=== PATIENT | male | born 1975 | race African-American/Black ===

== ENCOUNTER 2017-06-06 11:55 | Inpatient (IN) | payer OTHER ==
[2017-06-06 12:08] VITALS: BMI 34.3
--- NOTE | 2017-06-06 12:13 | PDOC ---
Attending Attestation - Resident Resident Name: Rosi Rosales - ED Attending Attestation I have performed the following: I have examined & evaluated the patient, The case was reviewed & discussed with the resident, I agree w/resident's findings & plan, Exceptions are as noted - HPI HPI: 06/06/17 12:12 Hand Infection - Renal Transplant roughly 10 years ago - Physicial Exam PE: 06/06/17 12:13 Obvious Infection - Medical Decision Making 06/06/17 12:[address] Grove's assessment and plan Discharge Disposition - Diagnosis Immunocompromised state, Kidney transplant recipient, Cellulitis of right upper extremity Cellulitis of lower extremity Qualifiers: Laterality: left Qualified Code(s): L03.116 - Cellulitis of left lower limb - Discharge Dispostion Condition at time of disposition: Improved Last Admission D/C Date: 04/18/04 Admit: Yes
[2017-06-06] MEDS ORDERED: PIPERACILLIN/TAZOB 4.5 GM/100 ML PRE-DOCKED IVPB ONE (12:59)
[2017-06-06] MEDS ORDERED: VANCOMYCIN 2,000 MG in DEXTROSE 5%-WATER - 500 ML IVPB ONE (13:00)
[2017-06-06 13:23] LABS: BASOPHIL 0.6 % (0-2.0); EOSINOPHIL 1.2 % (0-4.5); MCH 28.5 pg (25.7-33.7); MCHC 32.3 g/dl (32.0-35.9); MEAN CELL VOLUME 88.3 fl (80-96); MEAN PLT VOLUME 8.1 fl (7.5-11.1); NEUTROPHILS 86.2 % (42.8-82.8); PLATELET COUNT 214 K/MM3 (134-434); RDW 13.5 % (11.9-15.9); WHITE BLOOD COUNT 12.8 K/mm3 (4.0-10.0)
[2017-06-06 13:24] LABS: VENOUS PH 7.43 (7.32-7.42)
[2017-06-06 13:26] LABS: VENOUS BLOOD GAS HCO3 21.1 meq/L (19-25)
--- NOTE | 2017-06-06 13:38 | PDOC ---
History of Present Illness - General Chief Complaint: Wound Infection Stated Complaint: RIGHT HAND SWOLLEN Time Seen by Provider: 06/06/17 12:11 History Source: Patient Exam Limitations: No Limitations - History of Present Illness Initial Comments: 42yo M with PMH of CVA, kidney transplant presenting c/o Right hand 5th digit wound. Pt noticed Right hand swelling on Friday night. On pt took Advil which alleviated the pain, he also put peroxide on the wound which broke open the skin. Pt reported some pus had drained from wound. He rates the pain as 5/10. Pt uses his motorized scooter, and reports not having done anything unusual recently. Denies bug bite, bumping/injuring the area. He presents to ER with continued swelling of Right hand. 06/06/17 14:03 Severity: moderate Associated Symptoms: denies: chest pain, diaphoresis, fever/chills, nausea/ vomiting, rash, shortness of breath Past History - Past Medical History Allergies/Adverse Reactions: Allergies Allergy/AdvReac Type Severity Reaction Status Date / Time No Known Allergies Allergy Verified 06/06/17 11:58 Home Medications: Ambulatory Orders Aspirin [ASA -] 81 mg PO DAILY 06/06/17 Calcitriol [Rocaltrol] 0.5 mcg PO DAILY 06/06/17 Cholecalciferol (Vitamin D3) [Vitamin D3] 5,000 unit PO WEEKLY 06/06/17 Cinacalcet HCl [Sensipar] 60 mg PO DAILY 06/06/17 Dexlansoprazole [Dexilant] 60 mg PO DAILY 06/06/17 Levalbuterol HCl [Xopenex] 0.31 mg IH BID PRN 06/06/17 Metoprolol Tartrate 50 mg PO BID 06/06/17 Nifedipine [Procardia Xl] 60 mg PO DAILY 06/06/17 Prednisone 5 mg PO DAILY 06/06/17 Salmeterol/Fluticasone [Advair 250Mcg/50Mcg] 1 inh PO BID 06/06/17 Sodium Bicarbonate - 650 mg PO BID 06/06/17 Tacrolimus [Envarsus Xr] 4 mg PO BID 06/06/17 Asthma: Yes 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) Dialysis: Yes (past) HTN: Yes - Surgical History GI Surgery: Yes (kidney transplant 6 yrs ago) - Psycho/Social/Smoking Cessation Hx Suicidal Ideation: No Smoking History: Never smoked Have you smoked in the past 12 months: No Information on smoking cessation initiated: No Hx Alcohol Use: No Drug/Substance Use Hx: No Substance Use Type: None Review of Systems - Review of Systems Able to Perform ROS?: Yes Is the patient limited Slovak proficient: No Constitutional: No: Chills, Diaphoresis, Fever HEENTM: No: Recent change in vision, Ear Pain, Nose Pain, Throat Pain Respiratory: No: Cough, Orthopnea, Shortness of Breath, Stridor, Wheezing, Hemoptysis Cardiac (ROS): No: Chest Pain, Irregular Heart Rate, Palpitations, Syncope ABD/GI: No: Constipated, Diarrhea, Nausea, Rectal Bleeding, Vomiting, Abdominal cramping : No: Dysuria, Hematuria Musculoskeletal: No: Joint Pain, Muscle Pain Integumentary: No: Rash Neurological: No: Headache, Numbness *Physical Exam - Vital Signs Last Vital Signs Temp Pulse Resp BP Pulse Ox 98.6 F 74 18 161/96 97 06/06/17 11:58 06/06/17 11:58 06/06/17 11:58 06/06/17 11:58 06/06/17 11:58 - Physical Exam General Appearance: Yes: Nourished, Appropriately Dressed. No: Apparent Distress HEENT: positive: EOMI, Normal Voice. negative: Pale Conjunctivae, Scleral Icterus (R), Scleral Icterus (L) Neck: positive: Trachea midline, Supple. negative: Stridor Respiratory/Chest: positive: Lungs Clear, Normal Breath Sounds. negative: Accessory Muscle Use Cardiovascular: positive: Regular Rhythm, Regular Rate, S1, S2. negative: Murmur Vascular Pulses: Dorsalis-Pedis (R): 2+, Doralis-Pedis (L): 0 Gastrointestinal/Abdominal: negative: Tender, Distended, Guarding, Rebound Extremity: positive: Pedal Edema (Left LE 3+ pitting edema). negative: Calf Tenderness Integumentary: positive: Dry, Warm, Other (Right hand with swelling of 5th digit and dorsal/ventral part of hand. Pus oozing out of wound, more pus came out with pressure to the area. Also, 2 wounds 1cm x 1cm found on tip of Left 1st toe new to pt, with pink base and small amount of serosangiunous drainage.) Neurologic: positive: Fully Oriented, Alert, Normal Mood/Affect. negative: Numbness, Sensory Deficit ED Treatment Course - LABORATORY CBC & Chemistry Diagram: 06/06/17 12:48 06/06/17 12:48 - ADDITIONAL ORDERS Additional order review: Laboratory Results 06/06/17 13:06 VBG pH 7.43 H POC VBG pCO2 32.7 L POC VBG pO2 155.0 H* Mixed VBG HCO3 21.1 06/06/17 12:48 RBC 4.39 MCV 88.3 MCHC 32.3 RDW 13.5 MPV 8.1 Neutrophils % 86.2 H Lymphocytes % 3.0 L Monocytes % 9.0 Eosinophils % 1.2 Basophils % 0.6 - RADIOLOGY Radiology Studies Ordered: Category Date Time Status FOOT-LEFT [RAD] Stat Radiology 06/06/17 12:52 Taken DUPLEX ART. LOWER COMPL US [US] Stat Ultrasound 06/06/17 12:46 Ordered DUPLEX VASCUL US-2LEGS [US] Stat Ultrasound 06/06/17 12:48 Ordered Medical Decision Making - Medical Decision Making 42yo M with PMH of CVA, kidney transplant presents c/o Right hand 5th digit wound. Upon exam wound is oozing pus and more pus expelled with pressure to the area. Dr. Rodriguez called for on-call Plastic Surgery/Hand consult, he declined the consult. Vancomycin and Zosyn given. Left LE edema noted on exam. Bari LE Duplex U/S and arterial U/S ordered. Also on exam, 2 new wounds 1cm x 1cm found on tip of Left 1st toe. Xray (-) for osteomyelitis. Vascular Surgery consult placed with Dr. Carmona. 06/06/17 16:36 06/06/17 17:10 Bari LE Duplex U/S (-) for DVT and bari arterial U/S reveal a normal vascular study. 06/06/17 17:19 Left LE MRI with contrast ordered to r/o osteomyelitis per Vascular Surgery consult. 06/06/17 18:32 Dr. Rodriguez agreed to Plastic Surgery/Hand consult, order re-entered. *DC/Admit/Observation/Transfer Diagnosis at time of Disposition: Immunocompromised patient, Renal transplant recipient, Cellulitis of arm, right Cellulitis of leg Qualifiers: Laterality: left Qualified Code(s): L03.116 - Cellulitis of left lower limb - Discharge Dispostion Condition at time of disposition: Guarded Admit: Yes
[2017-06-06 13:53] LABS: ALBUMIN 3.5 g/dl (3.4-5.0); ANION GAP 8 (8-16); CALCIUM 8.5 mg/dL (8.5-10.1); CO2 22 mmol/L (21-32); CREATININE 1.7 mg/dL (0.7-1.3); GLUCOSE,RANDOM 93 mg/dL (74-106); SGPT/ALT 12 U/L (12-78)
[2017-06-06 13:56] LABS: ALK PHOS 88 U/L (45-117); BILIRUBIN,TOTAL 0.5 mg/dL (0.2-1.0); TOT PROT 6.2 g/dl (6.4-8.2)
[2017-06-06 13:58] LABS: SGOT/AST 8 U/L (15-37)
[2017-06-06] MEDS ORDERED: PIPERACILLIN/TAZOB 4.5 GM 100 ML IVPB ONE (15:05)
[2017-06-06 15:46] LABS: PH,URINE 7.5 (5.0-8.0); URINE APPEARANCE CLEAR; URINE BILIRUBIN NEGATIVE (NEGATIVE); URINE BLOOD NEGATIVE (NEGATIVE); URINE COLOR LT. YELLOW; URINE GLUCOSE (UA) NEGATIVE (NEGATIVE); URINE KETONE NEGATIVE (NEGATIVE); URINE LEUK ESTERASE NEGATIVE (NEGATIVE); URINE NITRITE NEGATIVE (NEGATIVE); URINE PROTEIN TRACE (NEGATIVE); URINE UROBILINOGEN 0.2 mg/dL (0.2-1.0)
--- NOTE | 2017-06-06 17:05 | CONSULT ---
Consult - Alcohol/Substance Use Hx Alcohol Use: No - Smoking History Smoking history: Never smoked Have you smoked in the past 12 months: No Home Medications - Allergies Allergies/Adverse Reactions: Allergies Allergy/AdvReac Type Severity Reaction Status Date / Time No Known Allergies Allergy Verified 06/06/17 11:58 - Home Medications Home Medications: Ambulatory Orders Aspirin [ASA -] 81 mg PO DAILY 06/06/17 Calcitriol [Rocaltrol] 0.5 mcg PO DAILY 06/06/17 Cholecalciferol (Vitamin D3) [Vitamin D3] 5,000 unit PO WEEKLY 06/06/17 Cinacalcet HCl [Sensipar] 60 mg PO DAILY 06/06/17 Dexlansoprazole [Dexilant] 60 mg PO DAILY 06/06/17 Levalbuterol HCl [Xopenex] 0.31 mg IH BID PRN 06/06/17 Metoprolol Tartrate 50 mg PO BID 06/06/17 Nifedipine [Procardia Xl] 60 mg PO DAILY 06/06/17 Prednisone 5 mg PO DAILY 06/06/17 Salmeterol/Fluticasone [Advair 250Mcg/50Mcg] 1 inh PO BID 06/06/17 Sodium Bicarbonate - 650 mg PO BID 06/06/17 Tacrolimus [Envarsus Xr] 4 mg PO BID 06/06/17 Physical Exam Vital Signs: Vital Signs Temperature 98.6 F 06/06/17 11:58 Pulse Rate 74 06/06/17 11:58 Respiratory Rate 18 06/06/17 11:58 Blood Pressure 161/96 06/06/17 11:58 O2 Sat by Pulse Oximetry (%) 97 06/06/17 11:58 Assessment/Plan Vascular Surgery 42yo M with PMH of CVA, kidney transplant presenting c/o Right hand 5th digit wound. Pt noticed Right hand swelling on Friday night. On pt took Advil which alleviated the pain, he also put peroxide on the wound which broke open the skin. Pt reported some pus had drained from wound. He rates the pain as 5/10. Pt uses his motorized scooter, and reports not having done anything unusual recently. Denies bug bite, bumping/injuring the area. He presents to ER with continued swelling of Right hand. 06/06/17 14:03 Severity: moderate Associated Symptoms: denies: chest pain, diaphoresis, fever/chills, nausea/ vomiting, rash, shortness of breath Past History - Past Medical History Allergies/Adverse Reactions: Allergies Allergy/AdvReac Type Severity Reaction Status Date / Time No Known Allergies Allergy Verified 06/06/17 11:58 Home Medications: Ambulatory Orders Aspirin [ASA -] 81 mg PO DAILY 06/06/17 Calcitriol [Rocaltrol] 0.5 mcg PO DAILY 06/06/17 Cholecalciferol (Vitamin D3) [Vitamin D3] 5,000 unit PO WEEKLY 06/06/17 Cinacalcet HCl [Sensipar] 60 mg PO DAILY 06/06/17 Dexlansoprazole [Dexilant] 60 mg PO DAILY 06/06/17 Levalbuterol HCl [Xopenex] 0.31 mg IH BID PRN 06/06/17 Metoprolol Tartrate 50 mg PO BID 06/06/17 Nifedipine [Procardia Xl] 60 mg PO DAILY 06/06/17 Prednisone 5 mg PO DAILY 06/06/17 Salmeterol/Fluticasone [Advair 250Mcg/50Mcg] 1 inh PO BID 06/06/17 Sodium Bicarbonate - 650 mg PO BID 06/06/17 Tacrolimus [Envarsus Xr] 4 mg PO BID 06/06/17 PE Head - NC/At Lung - CTA Heart - RRR abd - soft,nt,nd ext - Right hand - fifth digit -- with pus draining. Right foot -- great toe -- nail not present. Some deformity to right great toe. wound clean , and pink. A/P Left great toe wound -- clean pink. MRI to rule out osteo. Right hand wound on finger with discharge. Hand/plastic surgery eval for possible drainage. William Carmona DO
--- NOTE | 2017-06-06 17:48 | CONSULT ---
Consult Consult Specialty:: infectious surgery Reason for Consultation:: abscess of the finger. loss of toenail - History of Present Illness Chief Complaint: swelling of the hand and thumb with abscess History of Present Illness: 42 year old male with a significant past medical history of CVA with left sided weakness and a kidney transplant 6 years ago. He presents to the Ed today complaining of right hand 5th digit wound. He states he noticed his right hand swelling that began on Friday night, he endorses some pain on the hand relieved with home Advil. He attempted to apply hydrogen peroxide on the wound which broke open the skin. He reports some pus and drainage from the right hand with pain after using the peroxide. Pt reported some pus had drained from wound. patients rt leg has toe nail missing patient looks clinically stable - History Source History Provided By: Patient Limitations to Obtaining History: No Limitations - Alcohol/Substance Use Hx Alcohol Use: No - Smoking History Smoking history: Never smoked Have you smoked in the past 12 months: No Home Medications - Allergies Allergies/Adverse Reactions: Allergies Allergy/AdvReac Type Severity Reaction Status Date / Time No Known Allergies Allergy Verified 06/06/17 11:58 - Home Medications Home Medications: Ambulatory Orders Aspirin [ASA -] 81 mg PO DAILY 06/06/17 Calcitriol [Rocaltrol] 0.5 mcg PO DAILY 06/06/17 Cholecalciferol (Vitamin D3) [Vitamin D3] 5,000 unit PO WEEKLY 06/06/17 Cinacalcet HCl [Sensipar] 60 mg PO DAILY 06/06/17 Dexlansoprazole [Dexilant] 60 mg PO DAILY 06/06/17 Levalbuterol HCl [Xopenex] 0.31 mg IH BID PRN 06/06/17 Metoprolol Tartrate 50 mg PO BID 06/06/17 Nifedipine [Procardia Xl] 60 mg PO DAILY 06/06/17 Prednisone 5 mg PO DAILY 06/06/17 Salmeterol/Fluticasone [Advair 250Mcg/50Mcg] 1 inh PO BID 06/06/17 Sodium Bicarbonate - 650 mg PO BID 06/06/17 Tacrolimus [Envarsus Xr] 4 mg PO BID 06/06/17 Review of Systems - Review of Systems Constitutional: reports: No Symptoms Eyes: reports: No Symptoms HENT: reports: No Symptoms Neck: reports: No Symptoms Cardiovascular: reports: No Symptoms Respiratory: reports: No Symptoms Gastrointestinal: reports: No Symptoms Genitourinary: reports: No Symptoms Musculoskeletal: reports: Other Integumentary: reports: Change in Color, Wound, Other Neurological: reports: No Symptoms Endocrine: reports: No Symptoms Hematology/Lymphatic: reports: No Symptoms Psychiatric: reports: No Symptoms Physical Exam Vital Signs: Vital Signs Temperature 98.6 F 06/06/17 11:58 Pulse Rate 70 06/06/17 17:21 Respiratory Rate 18 06/06/17 17:21 Blood Pressure 151/80 06/06/17 17:21 O2 Sat by Pulse Oximetry (%) 98 06/06/17 17:21 Constitutional: Yes: Well Nourished, No Distress, Calm, Obese (morbid) Eyes: Yes: Conjunctiva Clear HENT: Yes: Atraumatic Neck: Yes: Supple, Trachea Midline Cardiovascular: Yes: Regular Rate and Rhythm Respiratory: Yes: Regular, CTA Bilaterally Gastrointestinal: Yes: Normal Bowel Sounds, Soft Musculoskeletal: Yes: Other Extremities: Yes: Other (thumb draiang pus with swelling of the hand) Wound/Incision: Yes: Draining Neurological: Yes: Alert, Oriented Psychiatric: Yes: Alert, Oriented Assessment/Plan - Problems (1) Cellulitis of hand Code(s): L03.119 - CELLULITIS OF UNSPECIFIED PART OF LIMB (2) Immunocompromised patient Code(s): D84.9 - IMMUNODEFICIENCY, UNSPECIFIED (3) Renal transplant recipient Code(s): Z94.0 - KIDNEY TRANSPLANT STATUS (4) Cellulitis of hand, right Code(s): L03.113 - CELLULITIS OF RIGHT UPPER LIMB plan started patient on abx cx hand surgeon to see will need drainage of the hand
--- NOTE | 2017-06-06 18:05 | HP ---
CHIEF COMPLAINT: PCP: HISTORY OF PRESENT ILLNESS: Patient is a 42 year old male with a significant past medical history of CVA with left sided weakness and a kidney transplant apx 6 years ago. He presents to the Ed today complaining of right hand 5th digit wound. He states he noticed his right hand swelling that began on Friday night, he endorses some pain on the hand relieved with home Advil. He attempted to apply hydrogen peroxide on the wound which broke open the skin. He reports some pus and drainage from the right hand with pain after using the peroxide. Pt reported some pus had drained from wound. He rates the pain as 5/10. He denies bug bite , bumping/injuring the area or trauma. He presents to ER with continued swelling of Right hand. On his right foot great toe he noted to have a deformity with missing toe nail. He also has chronic +4 pitting left lower ext lymphedema. ER course was notable for: (1) WBC 12.8 (2) Creat 1.7 (3) Left leg lymphedema +4 pitting (4) Vascular duplex Study 06/06 (5) Right foot great toe, no toe nail with deformity (6) Right hand, fifth digit + pus Recent Travel: PAST MEDICAL HISTORY: past medical history of CVA with left sided weakness and a kidney transplant apx 6 years ago. PAST SURGICAL HISTORY: kidney transplant apx 6 years ago. Social History: Smoking: denies Alcohol: deneis Drugs: denies Family History: Allergies No Known Allergies Allergy (Verified 06/06/17 11:58) HOME MEDICATIONS: Home Medications Medication Instructions Recorded Aspirin [ASA -] 81 mg PO DAILY 06/06/17 Calcitriol [Rocaltrol] 0.5 mcg PO DAILY 06/06/17 Cholecalciferol (Vitamin D3) 5,000 unit PO WEEKLY 06/06/17 [Vitamin D3] Cinacalcet HCl [Sensipar] 60 mg PO DAILY 06/06/17 Dexlansoprazole [Dexilant] 60 mg PO DAILY 06/06/17 Levalbuterol HCl [Xopenex] 0.31 mg IH BID PRN 06/06/17 Metoprolol Tartrate 50 mg PO BID 06/06/17 Nifedipine [Procardia Xl] 60 mg PO DAILY 06/06/17 Prednisone 5 mg PO DAILY 06/06/17 Salmeterol/Fluticasone [Advair 1 inh PO BID 06/06/17 250Mcg/50Mcg] Sodium Bicarbonate - 650 mg PO BID 06/06/17 Tacrolimus [Envarsus Xr] 4 mg PO BID 06/06/17 REVIEW OF SYSTEMS CONSTITUTIONAL: Absent: fever, chills, diaphoresis, generalized weakness, malaise, loss of appetite, weight change HEENT: Absent: rhinorrhea, nasal congestion, throat pain, throat swelling, difficulty swallowing, mouth swelling, ear pain, eye pain, visual changes CARDIOVASCULAR: Absent: chest pain, syncope, palpitations, irregular heart rate, lightheadedness , peripheral edema RESPIRATORY: Absent: cough, shortness of breath, dyspnea with exertion, orthopnea, wheezing, stridor, hemoptysis GASTROINTESTINAL: Absent: abdominal pain, abdominal distension, nausea, vomiting, diarrhea, constipation, melena, hematochezia GENITOURINARY: Absent: dysuria, frequency, urgency, hesitancy, hematuria, flank pain, genital pain MUSCULOSKELETAL: Absent: myalgia, arthralgia, joint swelling, back pain, neck pain SKIN: ENDOCRINE: Absent: unexplained weight gain, unexplained weight loss, heat intolerance, cold intolerance NEUROLOGIC: Absent: headache, focal weakness or paresthesias, dizziness, unsteady gait, seizure, mental status changes, bladder or bowel incontinence PSYCHIATRIC: Absent: anxiety, depression, suicidal or homicidal ideation, hallucinations. PHYSICAL EXAMINATION Vital Signs - 24 hr 06/06/17 17:21 Pulse Rate [ 70 Apical] Respiratory 18 Rate Blood Pressure 151/80 [Right Arm] O2 Sat by Pulse 98 Oximetry (%) GENERAL: Awake, alert, and fully oriented, in no acute distress. HEAD: Normal with no signs of trauma. EYES: Pupils equal, round and reactive to light, extraocular movements intact, sclera anicteric, conjunctiva clear. No lid lag. EARS, NOSE, THROAT: Ears normal, nares patent, oropharynx clear without exudates. Moist mucous membranes. NECK: Normal range of motion, supple without lymphadenopathy, JVD, or masses. LUNGS: Breath sounds equal, clear to auscultation bilaterally. No wheezes, No accessory muscle use. HEART: Regular rate and rhythm, normal S1 and S2 without murmur, rub or gallop. ABDOMEN: Soft, nontender, not distended, normoactive bowel sounds, no guarding, no rebound, no masses. No hepatomegaly or splenomegaly. MUSCULOSKELETAL: Normal range of motion at all joints. No bony deformities or tenderness. No CVA tenderness. UPPER EXTREMITIES: Right hand edema, no streaking noted, Right hand fifth digit circular [id number] ulceration +slough +pus +edema + pain. Right foot great toe, LOWER EXTREMITIES: Lymphedema of left lower ext +4 pitting NEUROLOGICAL: Normal speech. Non ambulatory, + left sided weakness LE PSYCHIATRIC: Cooperative. Good eye contact. Appropriate mood and affect. ASSESSMENT/PLAN: Patient is a 42 year old male with a significant past medical history of CVA with left sided weakness and a kidney transplant apx 6 years ago. He presents to the Ed today complaining of right hand 5th digit wound. He states he noticed his right hand swelling that began on Friday night, he endorses some pain on the hand relieved with home Advil. He attempted to apply hydrogen peroxide on the wound which broke open the skin. He reports some pus and drainage from the right hand with pain after using the peroxide. Pt reported some pus had drained from wound. He rates the pain as 5/10. He denies bug bite , bumping/injuring the area or trauma. He presents to ER with continued swelling of Right hand. On his right foot great toe he noted to have a deformity with missing toe nail. He also has chronic +4 pitting left lower ext lymphedema. ID: Cellulitis of right upper extremity - acute Immunocompromised s/p Kidney transplant A/P: On Vanco and Zosysn Seen by ID and Vascular surgery Also has missing toe nail on right foot that does not appear infected Hand surgery consulted Elevated right hand Hand xray to rule out fracture Wound care with betadine drips and soaks Blood cultures sent Plastic surgeon to evaluate Left Lower Ext Lymphedema s/p CVA A/p: Bilateral LE doppler to rule out DVT ordered Patient uses a motorized scooter to mobilize + Left sided weakness On Aspirin 81mg daily Neuro: CVA history with left sided weakness A/P: On ASA Will order lipid panel : Kidney Transplant 2016 A/p: on home meds of Tacrolimus [Envarsus Xr], spoke with pharmacy, med non formulary Patient states he has no one to bring him this med from home Pharmacy has Prograf but not same ingredients as pt home med Renal consulted, await recommendations ARMAND A/P: NS @ 50cc/hr Creat 1.7, unknown baseline Renal consult Monitor renal function in the setting of kidney transplant pt. F.E.N. Fluids: NS @ 50cc/hr Electrolytes: monitor Nutrition: renal diet Prophlyxis: heparin TID GI: Protonix Disposition: Requires inpatient hospitalization. full code. Visit type - Emergency Visit Emergency Visit: Yes ED Registration Date: 06/06/17 Care time: The patient presented to the Emergency Department on the above date and was hospitalized for further evaluation of their emergent condition. - New Patient This patient is new to me today: Yes Date on this admission: 06/06/17 - Critical Care Critical Care patient: No
[2017-06-06] MEDS ORDERED: LEVALBUTEROL HCL 0.31 MG IH PRN (18:06)
[2017-06-06] MEDS ORDERED: ALBUTEROL SO4 6.7 GM HFA INHALER IH PRN (18:51)
[2017-06-06] MEDS ORDERED: morphine CARPU-JECT 2 MG/1 ML DISP.SYRIN IVPB PRN (19:58)
[2017-06-06] MEDS: PIPERACILLIN/TAZOB 2.25 GM 2.25 GM in DEXTROSE 5%-WATER - 50 ML IVPB SCH (21:14)
[2017-06-06] MEDS: SODIUM CHLORIDE 1,000 ML IV SCH (21:14)
[2017-06-06] MEDS: METOPROLOL TARTRATE 50 MG TABLET (FP) PO SCH (21:14)
[2017-06-06] MEDS: SODIUM BICARBONATE 650 MG TABLET PO SCH (21:14)
[2017-06-06] MEDS: BUDESONIDE/FORMETEROL FUMARATE 80/4.5 mcg INHALER IH SCH (21:14)
[2017-06-06] MEDS: HEPARIN NA (PORCINE) 5,000 UNITS/ML 1ML VIAL SQ SCH (21:14)
[2017-06-06] MEDS ORDERED: PATIENT'S OWN MEDICATION (NON-FORMULARY) (Salmeterol/Fluticasone [Advair 250mcg/50mcg -] 1 PO SCH (22:00)
[2017-06-07] MEDS ORDERED: PT OWN MED DRAWER 7, Y5N ONE ×4 (00:08→21:07)
[2017-06-07] MEDS ORDERED: PIPERACILLIN/TAZOBACTAM 2.25 GM VIAL IVPB ONE ×3 (01:11→17:39)
[2017-06-07] MEDS ORDERED: DEXTROSE 5%-WATER - 50 ML IVPB ONE ×3 (01:12→17:39)
[2017-06-07] MEDS: PIPERACILLIN/TAZOB 2.25 GM 2.25 GM in DEXTROSE 5%-WATER - 50 ML IVPB SCH ×3 (01:14→18:05)
[2017-06-07] MEDS: HEPARIN NA (PORCINE) 5,000 UNITS/ML 1ML VIAL SQ SCH ×3 (06:11→21:09)
[2017-06-07 07:47] LABS: MCH 28.5 pg (25.7-33.7); MEAN CELL VOLUME 89.3 fl (80-96); MEAN PLT VOLUME 7.5 fl (7.5-11.1); PLATELET COUNT 241 K/MM3 (134-434); RDW 13.5 % (11.9-15.9); WHITE BLOOD COUNT 13.5 K/mm3 (4.0-10.0)
[2017-06-07 08:21] LABS: ANION GAP 9 (8-16); CO2 24 mmol/L (21-32); CREATININE 1.8 mg/dL (0.7-1.3); GLUCOSE,RANDOM 99 mg/dL (74-106); MAGNESIUM 1.6 mg/dL (1.8-2.4)
[2017-06-07 08:26] LABS: CHOLESTEROL 146 mg/dL (50-200)
[2017-06-07] MEDS ORDERED: CINACALCET HCL 60 MG PO SCH (10:00)
[2017-06-07] MEDS ORDERED: CALCITRIOL 0.5 MCG PO SCH (10:00)
[2017-06-07] MEDS ORDERED: PATIENT'S OWN MEDICATION (NON-FORMULARY) (Nifedipine [Procardia Xl] 60 MG) PO SCH (10:00)
[2017-06-07] MEDS ORDERED: PATIENT'S OWN MEDICATION (NON-FORMULARY) (Dexlansoprazole [Dexilant] 60 MG) PO SCH (10:00)
[2017-06-07] MEDS: BUDESONIDE/FORMETEROL FUMARATE 80/4.5 mcg INHALER IH SCH ×2 (10:20→21:09)
[2017-06-07] MEDS: METOPROLOL TARTRATE 50 MG TABLET (FP) PO SCH ×2 (10:27→21:08)
[2017-06-07] MEDS: CALCITRIOL 0.25 MCG CAPSULE (FP) PO SCH (10:27)
[2017-06-07] MEDS: ASPIRIN 81 MG CHEWABLE TABLETS PO SCH (10:27)
[2017-06-07] MEDS: predniSONE 5 MG TABLET (UD) PO SCH (10:27)
[2017-06-07] MEDS: NIFEdipine E.R 60 MG TABLET (UD) PO SCH (10:27)
[2017-06-07] MEDS: PANTOPRAZOLE 40 MG TABLET (FP) PO SCH (10:27)
[2017-06-07] MEDS: SODIUM BICARBONATE 650 MG TABLET PO SCH ×2 (10:28→21:08)
[2017-06-07] MEDS: CINACALCET HCL 30 MG TAB (FP) PO SCH (10:28)
--- NOTE | 2017-06-07 12:48 | CONSULT ---
Consult Consult Specialty:: Infectious Disease Reason for Consultation:: Rt hand swelling and purulent drainage - History of Present Illness History of Present Illness: Patient is a 42 y.o. AA male with history of renal transplant and CVA with Lt hemiparesis, and LLE lymphedema who presents with complaints of Rt hand swelling and tenderness and purulent drainage from Rt 5th digit. States symptoms began 4 days ago. Denies trauma to site. Denies fever/chills or any other specific complaints. Lt great toe with some erythema but currently without drainage. Mild leukocytosis noted. 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 No: Alzheimer's, Dementia, Migraine, Multiple Sclerosis, Peripheral Neuropathy, Parkinson's, Seizure, Syncope, TIA, Vertigo, Other Cardio/Vascular: Yes: HTN Gastrointestinal: No: Ascites, Cancer, Constipation, Crohn's Disease, Diverticulitis, Diverticulosis, Esophageal Varices, Gastritis, GERD, GI Bleed, Hemorrhoids, Hiatal Hernia, Inflamatory Bowel Disease, Irritable Bowel Disease, Pancreatitis, Peptic Ulcer Disease, Ulcerative Colitis, Other Hepatobiliary: No: Cirrhosis, Cholelithiasis, Cholecystitis, Choledocholithiasis , Hepatitis A, Hepatitis B, Hepatitis C, Other Renal/: Yes: Other (s/p renal transplant 6 yrs ago). No: Renal Failure, Renal Inusuff, BPH, Cancer, Hematuria, Hemodialysis, Neurogenic Bladder, Renal Calculi, UTI ENT: No: Allergic Rhinitis, Sinusitis, Other Endocrine: No: Essex's Disease, Bradley's Disease, Diabetes Insipidus, Diabetes Mellitus, Hyperparathyroidism, Hyperthyroidism, Hypothyroidism, Osteopenia, SIADH, Other - Past Surgical History Past Surgical History: Yes: Kidney Transplant - Alcohol/Substance Use Hx Alcohol Use: No - Smoking History Smoking history: Never smoked Have you smoked in the past 12 months: No Home Medications - Allergies Allergies/Adverse Reactions: Allergies Allergy/AdvReac Type Severity Reaction Status Date / Time No Known Allergies Allergy Verified 06/06/17 11:58 - Home Medications Home Medications: Ambulatory Orders Aspirin [ASA -] 81 mg PO DAILY 06/06/17 Calcitriol [Rocaltrol] 0.5 mcg PO DAILY 06/06/17 Cholecalciferol (Vitamin D3) [Vitamin D3] 5,000 unit PO WEEKLY 06/06/17 Cinacalcet HCl [Sensipar] 60 mg PO DAILY 06/06/17 Dexlansoprazole [Dexilant] 60 mg PO DAILY 06/06/17 Levalbuterol HCl [Xopenex] 0.31 mg IH BID PRN 06/06/17 Metoprolol Tartrate 50 mg PO BID 06/06/17 Nifedipine [Procardia Xl] 60 mg PO DAILY 06/06/17 Prednisone 5 mg PO DAILY 06/06/17 Salmeterol/Fluticasone [Advair 250Mcg/50Mcg] 1 inh PO BID 06/06/17 Sodium Bicarbonate - 650 mg PO BID 06/06/17 Tacrolimus [Envarsus Xr] 4 mg PO BID 06/06/17 Family Disease History - Family Disease History Family History: Denies Review of Systems - Review of Systems Constitutional: reports: No Symptoms Eyes: reports: No Symptoms HENT: reports: No Symptoms Neck: reports: No Symptoms Cardiovascular: reports: No Symptoms Respiratory: reports: No Symptoms Gastrointestinal: reports: No Symptoms Genitourinary: reports: No Symptoms Musculoskeletal: reports: No Symptoms Integumentary: reports: Erythema, Wound (purulent drainage from Rt 5th digit), Other (tenderness) Physical Exam Vital Signs: Vital Signs Temperature 97.7 F 06/07/17 02:00 Pulse Rate 82 06/07/17 08:00 Respiratory Rate 18 06/07/17 08:00 Blood Pressure 174/82 06/07/17 08:00 O2 Sat by Pulse Oximetry (%) 100 06/06/17 21:00 Constitutional: Yes: No Distress, Calm Eyes: Yes: WNL HENT: Yes: WNL Neck: Yes: WNL Cardiovascular: Yes: Regular Rate and Rhythm Respiratory: Yes: Regular Gastrointestinal: Yes: Normal Bowel Sounds, Soft Renal/: Yes: WNL Musculoskeletal: Yes: WNL Extremities: Yes: Other (Rt hand edema/warmth, Rt 5th finger with purulent drainage Lt 5th toe currently dry) Edema: Yes (LLE lymphedema) Neurological: Yes: Alert, Oriented Psychiatric: Yes: Alert, Oriented Labs: CBC, BMP 06/07/17 06:42 06/07/17 06:42 Imaging - Results X-ray: Report Reviewed (Lt toe no soft tissue edema or fracture) Problem List - Problems (1) Cellulitis of hand Code(s): L03.119 - CELLULITIS OF UNSPECIFIED PART OF LIMB (2) Immunocompromised patient Code(s): D84.9 - IMMUNODEFICIENCY, UNSPECIFIED (3) Renal transplant recipient Code(s): Z94.0 - KIDNEY TRANSPLANT STATUS Assessment/Plan Rt hand cellulitis, Purulent drainage from Rt 5th finger Renal insufficiency s/p renal transplant Leukocytosis -- continue current antibiotics -- please obtain wound culture from Rt 5th finger -- suggest xray of Rt hand -- repeat cbc
--- NOTE | 2017-06-07 13:12 | CONSULT ---
Consult Consult Specialty:: Nephrology-Drs. Seo/ Kalin Reason for Consultation:: The patient is s/p Renal transplant. - History of Present Illness Chief Complaint: Admitted with infected finger History of Present Illness: Patient is a 42 year old male with a significant past medical history of CVA with left sided weakness and a kidney transplant 6 years ago. The patient says that he had kidney problems as a child and was on Hemodialysis for several years until he got a Renal transplant 6 years ago. He was reportedly in coma for about 9 months before he went on dialysis??? He came to the ER complaining of right hand 5th digit wound. He states he noticed his right hand swelling that began on Friday night, he has pain on the hand relieved with home Advil. He attempted to apply hydrogen peroxide on the wound which broke open the skin. He reports some pus and drainage from the right hand with pain after using the peroxide. Pt reported some pus had drained from wound. He also has chronic +4 pitting left lower ext lymphedema. The patient vows compliace to his anti-rejection meds, even though he does not know the name of them. Maintains good urine output. 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 No: Alzheimer's, Dementia, Migraine, Multiple Sclerosis, Peripheral Neuropathy, Parkinson's, Seizure, Syncope, TIA, Vertigo, Other Cardio/Vascular: Yes: HTN Gastrointestinal: No: Ascites, Cancer, Constipation, Crohn's Disease, Diverticulitis, Diverticulosis, Esophageal Varices, Gastritis, GERD, GI Bleed, Hemorrhoids, Hiatal Hernia, Inflamatory Bowel Disease, Irritable Bowel Disease, Pancreatitis, Peptic Ulcer Disease, Ulcerative Colitis, Other Hepatobiliary: No: Cirrhosis, Cholelithiasis, Cholecystitis, Choledocholithiasis , Hepatitis A, Hepatitis B, Hepatitis C, Other Renal/: Yes: Other (s/p renal transplant 6 yrs ago). No: Renal Failure, Renal Inusuff, BPH, Cancer, Hematuria, Hemodialysis, Neurogenic Bladder, Renal Calculi, UTI Heme/Onc: Yes: Anemia ENT: No: Allergic Rhinitis, Sinusitis, Other Endocrine: No: [place]'s Disease, Beulah's Disease, Diabetes Insipidus, Diabetes Mellitus, Hyperparathyroidism, Hyperthyroidism, Hypothyroidism, Osteopenia, SIADH, Other - Past Surgical History Past Surgical History: Yes: Kidney Transplant - Alcohol/Substance Use Hx Alcohol Use: No - Smoking History Smoking history: Never smoked Have you smoked in the past 12 months: No Home Medications - Allergies Allergies/Adverse Reactions: Allergies Allergy/AdvReac Type Severity Reaction Status Date / Time No Known Allergies Allergy Verified 06/06/17 11:58 - Home Medications Home Medications: Ambulatory Orders Aspirin [ASA -] 81 mg PO DAILY 06/06/17 Calcitriol [Rocaltrol] 0.5 mcg PO DAILY 06/06/17 Cholecalciferol (Vitamin D3) [Vitamin D3] 5,000 unit PO WEEKLY 06/06/17 Cinacalcet HCl [Sensipar] 60 mg PO DAILY 06/06/17 Dexlansoprazole [Dexilant] 60 mg PO DAILY 06/06/17 Levalbuterol HCl [Xopenex] 0.31 mg IH BID PRN 06/06/17 Metoprolol Tartrate 50 mg PO BID 06/06/17 Nifedipine [Procardia Xl] 60 mg PO DAILY 06/06/17 Prednisone 5 mg PO DAILY 06/06/17 Salmeterol/Fluticasone [Advair 250Mcg/50Mcg] 1 inh PO BID 06/06/17 Sodium Bicarbonate - 650 mg PO BID 06/06/17 Tacrolimus [Envarsus Xr] 4 mg PO BID 06/06/17 Review of Systems - Review of Systems Constitutional: reports: No Symptoms HENT: reports: No Symptoms Cardiovascular: reports: Shortness of Breath Respiratory: denies: Cough Genitourinary: reports: Frequency, Incontinence. denies: Hematuria Neurological: reports: No Symptoms Endocrine: reports: No Symptoms Physical Exam Vital Signs: Vital Signs Temperature 97.7 F 06/07/17 02:00 Pulse Rate 82 06/07/17 08:00 Respiratory Rate 18 06/07/17 08:00 Blood Pressure 174/82 06/07/17 08:00 O2 Sat by Pulse Oximetry (%) 100 06/06/17 21:00 Constitutional: Yes: Well Nourished, Calm Eyes: Yes: EOM Intact HENT: Yes: Nasal Congestion Neck: Yes: Trachea Midline Cardiovascular: Yes: Regular Rate and Rhythm, S1 Respiratory: Yes: Regular, Diminished Gastrointestinal: Yes: Abdomen, Obese Edema: Yes Edema: LLE: 4+, RLE: 2+ Wound/Incision: Yes: Other (Dressing over the right little finger, which is swollen and tender) Neurological: Yes: Alert Psychiatric: Yes: Oriented Labs: CBC, BMP 06/07/17 06:42 06/07/17 06:42 Problem List - Problems (1) Cellulitis of arm, right Code(s): L03.113 - CELLULITIS OF RIGHT UPPER LIMB (2) Cellulitis of hand Code(s): L03.119 - CELLULITIS OF UNSPECIFIED PART OF LIMB (3) Immunocompromised patient Code(s): D84.9 - IMMUNODEFICIENCY, UNSPECIFIED (4) Renal transplant recipient Code(s): Z94.0 - KIDNEY TRANSPLANT STATUS (5) End stage kidney disease Code(s): N18.6 - END STAGE RENAL DISEASE Assessment/Plan Patient is a 42 year old male with a significant past medical history of ESRD, S /P Renal transplant, CVA with left sided weakness and a kidney transplant 6 years ago. The Renal functions reflect soem degree of Chronic Allograft Rejection. He is being followed at [facility]. He has a new onset finger Infection..On IV Abx. Also has Chronic left sided lymphedema. His allograft is on the right iliac fossa. Plan: Will restart all his anti-rejection medications. Spoke to Arely, the Pharmacist. All the medications will be available to him. Will monitor the renal functions. Thank you. Will follow with you. Zelda Seo,
--- NOTE | 2017-06-07 13:12 | EKG ---
Test Reason : Blood Pressure : / mmHG Vent. Rate : 068 BPM Atrial Rate : 068 BPM P-R Int : 162 ms QRS Dur : 114 ms QT Int : 378 ms P-R-T Axes : 066 -42 003 degrees QTc Int : 401 ms NORMAL SINUS RHYTHM LEFT AXIS DEVIATION VOLTAGE CRITERIA FOR LEFT VENTRICULAR HYPERTROPHY ST ELEVATION, CONSIDER EARLY REPOLARIZATION, PERICARDITIS, OR INJURY ABNORMAL ECG WHEN COMPARED WITH ECG OF 10-APR-2004 22:38, NO SIGNIFICANT CHANGE WAS FOUND REPEAT EKG IF CLINICALLY INDICATED Confirmed by KELSEY SHEIKH MD ([id number]) on 06/07/2017 1:11:41 PM Referred By: Confirmed By:KELSEY SHEIKH MD
[2017-06-07] MEDS: VANCOMYCIN 1,250 MG in DEXTROSE 5%-WATER - 250 ML IVPB SCH (15:07)
[2017-06-07] MEDS: MYCOPHENOLATE MOFETIL 500 MG TABLET PO SCH ×2 (15:07→21:08)
[2017-06-07] MEDS: TACROLIMUS ANHYDROUS 1 MG CAPSULE (NF) PO SCH ×2 (15:07→21:09)
--- NOTE | 2017-06-07 16:45 | PN ---
Physical Exam: SUBJECTIVE: Patient seen and examined sitting on edge of bed. Sister present. States feels well. OBJECTIVE: Vital Signs Period Temp Pulse Resp BP Sys/Granados Pulse Ox Last 24 Hr 97.6 F-97.9 F 70-83 16-18 128-174/72-84 98-100 GENERAL: The patient is awake, alert, and fully oriented, in no acute distress. HEAD: Normal with no signs of trauma. EYES: PERRL, extraocular movements intact, sclera anicteric, conjunctiva clear. No ptosis. LUNGS: Breath sounds equal, clear to auscultation bilaterally, no wheezes, no crackles, no accessory muscle use. HEART: Regular rate and rhythm, S1, S2 without murmur, rub or gallop. ABDOMEN: Soft, nontender, nondistended, normoactive bowel sounds, no guarding, no rebound UPPER RIGHT EXTREMITY: swelling from fingertips to elbow, mild erythema of forearm, warm to touch; fifth digit right hand with purulent drainage LOWER LEFT EXTREMITY: lymphedema; mild erythema and warmth NEUROLOGICAL: Cranial nerves II through XII grossly intact. Normal speech, gait not observed. Laboratory Results - last 24 hr 06/07/17 06/07/17 06/07/17 06:42 06:42 06:42 WBC 13.5 H RBC 4.55 Hgb 13.0 Hct 40.6 MCV 89.3 MCH 28.5 MCHC 32.0 RDW 13.5 Plt Count 241 MPV 7.5 Sodium 141 Potassium 4.5 Chloride 108 H Carbon Dioxide 24 Anion Gap 9 BUN 15 D Creatinine 1.8 H Random Glucose 99 Hemoglobin A1c % Calcium 9.0 Magnesium 1.6 L Triglycerides 102 Cholesterol 146 Total LDL Cholesterol 97 HDL Cholesterol 34 L 06/07/17 06:42 WBC RBC Hgb Hct MCV MCH MCHC RDW Plt Count MPV Sodium Potassium Chloride Carbon Dioxide Anion Gap BUN Creatinine Random Glucose Hemoglobin A1c % 5.1 Calcium Magnesium Triglycerides Cholesterol Total LDL Cholesterol HDL Cholesterol Active Medications Generic Name Dose Route Start Last Admin Trade Name Freq PRN Reason Stop Dose Admin Albuterol Sulfate 1 puff 06/06/17 18:51 Ventolin Hfa Inhaler - IH Q12H PRN COUGH Aspirin 81 mg 06/07/17 10:00 06/07/17 10:27 Asa - PO 81 mg DAILY SHAKEEL Administration Budesonide/Formoterol Fumarate 2 puff 06/06/17 22:00 06/07/17 10:20 Symbicort 80/4.5mcg - IH 2 puff BID SHAKEEL Administration Calcitriol 0.5 mcg 06/07/17 10:00 06/07/17 10:27 Rocaltrol - PO 0.5 mcg DAILY SHAKEEL Administration Cinacalcet 60 mg 06/07/17 10:00 06/07/17 10:28 Sensipar - PO 60 mg DAILY SHAKEEL Administration Ergocalciferol 50,000 unit 06/09/17 10:00 Drisdol - PO Q7D SHAKEEL Heparin Sodium (Porcine) 5,000 unit 06/06/17 22:00 06/07/17 15:07 Heparin - SQ 5,000 unit TID SHAKEEL Administration Vancomycin HCl 1,250 mg/ 250 mls @ 150 mls/hr 06/07/17 13:00 06/07/17 15:07 Dextrose IVPB 150 mls/hr DAILY@1300 SHAKEEL Administration Protocol Piperacillin Sod/Tazobactam 50 mls @ 100 mls/hr 06/06/17 18:45 06/07/17 10:19 Sod 2.25 gm/ Dextrose IVPB 100 mls/hr Q8H-IV SHAKEEL Administration Protocol Sodium Chloride 1,000 mls @ 50 mls/hr 06/06/17 20:00 06/06/17 21:14 Normal Saline - IV 06/07/17 20:01 50 mls/hr ASDIR SHAKEEL Administration Metoprolol Tartrate 50 mg 06/06/17 22:00 06/07/17 10:27 Lopressor - PO 50 mg BID SHAKEEL Administration Morphine Sulfate 1 mg 06/06/17 19:58 06/07/17 07:03 Morphine Injection - IVPB 1 mg Q4H PRN Administration PAIN Mycophenolate Mofetil 500 mg 06/07/17 13:45 06/07/17 15:07 Cellcept - PO 500 mg BID SHAKEEL Administration Nifedipine 60 mg 06/07/17 10:00 06/07/17 10:27 Procardia Xl - PO 60 mg DAILY SHAKEEL Administration Pantoprazole Sodium 40 mg 06/07/17 10:00 06/07/17 10:27 Protonix - PO 40 mg DAILY SHAKEEL Administration Prednisone 5 mg 06/07/17 10:00 06/07/17 10:27 Deltasone - PO 5 mg DAILY SHAKEEL Administration Sodium Bicarbonate 650 mg 06/06/17 22:00 06/07/17 10:28 Sodium Bicarbonate - PO 650 mg BID SHAKEEL Administration Tacrolimus 4 mg 06/07/17 13:45 06/07/17 15:07 Prograf (Non-Formulary) PO 4 mg BID SHAKEEL Administration ASSESSMENT/PLAN 42 year-old male with a PMH of CVA and intracranial hemorrhage s/p craniectomy ( 2000) and residual left-sided weakness, chronic LLE lymphedema, chronic left great toe wound, ESRD s/p renal transplant (2010 [facility]). Admitted for right 5th digit abscess. Cellulitis of right upper extremity Abscess of right 5th digit --arm is quite swollen, red, and warm today --Xray and CT pending --afebrile but elevated WBC --continue Zosyn (day #1) and Vanc (day #1) --ID following --hand surgery consult pending Cellulitis of left lower extremity Chronic left great toe wound --mild redness and warmth to distal leg --arterial and venous dopplers unremarkable other than soft tissue edema --antibiotics as above --MRI pending to r/o osteo Chronic left lower extremity lymphedema --has had full workup at [facility], told chronic condition h/o CVA s/p craniectomy with residual left-sided weakness --no acute issues --continue ASA ESRD s/p right renal transplant Chronic allograft rejection --allograft is on right iliac fossa --continue mycophenelate and tacrolimus F/E/N Fluids: PO intake adequate Electrolytes: replete as indicated Nutrition: renal diet DVT prophylaxis: subq heparin Disposition: continues to require inpatient care. Full code. Visit type - Emergency Visit Emergency Visit: Yes ED Registration Date: 06/06/17 Care time: The patient presented to the Emergency Department on the above date and was hospitalized for further evaluation of their emergent condition. - New Patient This patient is new to me today: Yes Date on this admission: 06/07/17 - Critical Care Critical Care patient: No
[2017-06-07] MEDS ORDERED: MAGNESIUM OXIDE 400 MG TABLET (FP) PO ONE (17:49)
[2017-06-07] MEDS: SODIUM CHLORIDE 1,000 ML IV SCH (21:59)
[2017-06-07 22:00] LABS: URINE APPEARANCE CLEAR; URINE BILIRUBIN NEGATIVE (NEGATIVE); URINE BLOOD 1+ (NEGATIVE); URINE COLOR YELLOW; URINE GLUCOSE (UA) NEGATIVE (NEGATIVE); URINE KETONE NEGATIVE (NEGATIVE); URINE LEUK ESTERASE TRACE (NEGATIVE); URINE NITRITE NEGATIVE (NEGATIVE); URINE PROTEIN NEGATIVE (NEGATIVE); URINE UROBILINOGEN NEGATIVE mg/dL (0.2-1.0)
[2017-06-07 22:07] LABS: URINE MUCUS RARE; URINE RBC 1 /hpf (0-3); URINE WBC 6 /hpf (3-5)
[2017-06-08] MEDS ORDERED: PIPERACILLIN/TAZOBACTAM 2.25 GM VIAL IVPB ONE ×3 (01:00→16:40)
[2017-06-08] MEDS ORDERED: DEXTROSE 5%-WATER - 50 ML IVPB ONE ×3 (01:01→16:40)
[2017-06-08] MEDS: PIPERACILLIN/TAZOB 2.25 GM 2.25 GM in DEXTROSE 5%-WATER - 50 ML IVPB SCH ×3 (01:05→17:19)
[2017-06-08] MEDS: SODIUM CHLORIDE 1,000 ML IV SCH ×2 (05:06→22:00)
[2017-06-08] MEDS: HEPARIN NA (PORCINE) 5,000 UNITS/ML 1ML VIAL SQ SCH ×3 (05:59→21:44)
[2017-06-08] MEDS ORDERED: PT OWN MED DRAWER 7, Y5N ONE (09:30)
[2017-06-08 09:35] LABS: BILIRUBIN,TOTAL 0.5 mg/dL (0.2-1.0); CREATININE 1.8 mg/dL (0.7-1.3); PHOSPHOROUS 2.2 mg/dL (2.5-4.9); SGOT/AST 5 U/L (15-37); SGPT/ALT 12 U/L (12-78); TOT PROT 5.6 g/dl (6.4-8.2)
[2017-06-08] MEDS: CALCITRIOL 0.25 MCG CAPSULE (FP) PO SCH (09:50)
[2017-06-08] MEDS: NIFEdipine E.R 60 MG TABLET (UD) PO SCH (09:50)
[2017-06-08] MEDS: predniSONE 5 MG TABLET (UD) PO SCH (09:51)
[2017-06-08] MEDS: SODIUM BICARBONATE 650 MG TABLET PO SCH ×2 (09:51→21:44)
[2017-06-08] MEDS: METOPROLOL TARTRATE 50 MG TABLET (FP) PO SCH ×2 (09:51→21:44)
[2017-06-08] MEDS: ASPIRIN 81 MG CHEWABLE TABLETS PO SCH (09:51)
[2017-06-08] MEDS: PANTOPRAZOLE 40 MG TABLET (FP) PO SCH (09:51)
[2017-06-08] MEDS: MYCOPHENOLATE MOFETIL 500 MG TABLET PO SCH ×2 (09:52→21:46)
[2017-06-08] MEDS: TACROLIMUS ANHYDROUS 1 MG CAPSULE (NF) PO SCH ×2 (09:52→21:47)
[2017-06-08] MEDS: CINACALCET HCL 30 MG TAB (FP) PO SCH (09:52)
[2017-06-08 10:11] LABS: ALBUMIN 2.9 g/dl (3.4-5.0); ALK PHOS 76 U/L (45-117); ANION GAP 10 (8-16); CALCIUM 8.8 mg/dL (8.5-10.1); CO2 21 mmol/L (21-32); GLUCOSE,RANDOM 87 mg/dL (74-106); MAGNESIUM 1.7 mg/dL (1.8-2.4)
[2017-06-08] MEDS: BUDESONIDE/FORMETEROL FUMARATE 80/4.5 mcg INHALER IH SCH ×2 (11:00→21:48)
--- NOTE | 2017-06-08 12:34 | PN ---
Progress Note, Physician History of Present Illness: Pt states he feels "better". Denies fever/chills. Pain controlled. No specific complaints - Current Medication List Current Medications: Active Medications Albuterol Sulfate (Ventolin Hfa Inhaler -) 1 puff IH Q12H PRN PRN Reason: COUGH Aspirin (Asa -) 81 mg PO DAILY [facility] Last Admin: 06/08/17 09:51 Dose: 81 mg Budesonide/Formoterol Fumarate (Symbicort 80/4.5mcg -) 2 puff IH BID [facility] Last Admin: 06/07/17 21:09 Dose: 2 puff Calcitriol (Rocaltrol -) 0.5 mcg PO DAILY [facility] Last Admin: 06/08/17 09:50 Dose: 0.5 mcg Cinacalcet (Sensipar -) 60 mg PO DAILY [facility] Last Admin: 06/08/17 09:52 Dose: 60 mg Ergocalciferol (Drisdol -) 50,000 unit PO Q7D [facility] Heparin Sodium (Porcine) (Heparin -) 5,000 unit SQ TID [facility] Last Admin: 06/08/17 05:59 Dose: 5,000 unit Vancomycin HCl 1,250 mg/ (Dextrose) 250 mls @ 150 mls/hr IVPB DAILY@1300 SHAKEEL PRN Reason: Protocol Last Admin: 06/07/17 15:07 Dose: 150 mls/hr Piperacillin Sod/Tazobactam (Sod 2.25 gm/ Dextrose) 50 mls @ 100 mls/hr IVPB Q8H-IV [facility] PRN Reason: Protocol Last Admin: 06/08/17 09:50 Dose: 100 mls/hr Metoprolol Tartrate (Lopressor -) 50 mg PO BID [facility] Last Admin: 06/08/17 09:51 Dose: 50 mg Morphine Sulfate (Morphine Injection -) 1 mg IVPB Q4H PRN PRN Reason: PAIN Last Admin: 06/07/17 07:03 Dose: 1 mg Mycophenolate Mofetil (Cellcept -) 500 mg PO BID [facility] Last Admin: 06/08/17 09:52 Dose: 500 mg Nifedipine (Procardia Xl -) 60 mg PO DAILY [facility] Last Admin: 06/08/17 09:50 Dose: 60 mg Pantoprazole Sodium (Protonix -) 40 mg PO DAILY [facility] Last Admin: 06/08/17 09:51 Dose: 40 mg Prednisone (Deltasone -) 5 mg PO DAILY [facility] Last Admin: 06/08/17 09:51 Dose: 5 mg Sodium Bicarbonate (Sodium Bicarbonate -) 650 mg PO BID [facility] Last Admin: 06/08/17 09:51 Dose: 650 mg Tacrolimus (Prograf (Non-Formulary)) 4 mg PO BID [facility] Last Admin: 06/08/17 09:52 Dose: 4 mg - Objective Vital Signs: Vital Signs Temperature 98.0 F 06/08/17 06:39 Pulse Rate 81 06/08/17 10:00 Respiratory Rate 20 06/08/17 10:00 Blood Pressure 152/84 06/08/17 10:00 O2 Sat by Pulse Oximetry (%) 100 06/08/17 09:00 Constitutional: Yes: No Distress, Calm Eyes: Yes: WNL HENT: Yes: WNL Neck: Yes: WNL Cardiovascular: Yes: Regular Rate and Rhythm Respiratory: Yes: Regular Gastrointestinal: Yes: Normal Bowel Sounds, Soft Extremities: Yes: Other (Rt 5th digit purulent wound, Rt hand edema/warmth. Good ROM in wrist Toe without discharge) Neurological: Yes: WNL Psychiatric: Yes: Alert, Oriented Labs: CBC, BMP 06/07/17 06:42 06/08/17 07:15 - ....Imaging X-ray: Report Reviewed (LE) Problem List - Problems (1) Cellulitis of hand Code(s): L03.119 - CELLULITIS OF UNSPECIFIED PART OF LIMB (2) Immunocompromised patient Code(s): D84.9 - IMMUNODEFICIENCY, UNSPECIFIED (3) Renal transplant recipient Code(s): Z94.0 - KIDNEY TRANSPLANT STATUS (4) Cellulitis of hand, right Code(s): L03.113 - CELLULITIS OF RIGHT UPPER LIMB Assessment/Plan Right 5th digit purulent wound/ Rt hand Cellulitis r/o Lt toe OM -- wound culture of finger taken -- CT of hand ordered -- continue current antibiotics -- repeat cbc in a.m. -- f/u culture results -- MRI of LE ordered
[2017-06-08 13:35] LABS: BASOPHIL 0.3 % (0-2.0); MCH 28.6 pg (25.7-33.7); MEAN CELL VOLUME 89.4 fl (80-96); MEAN PLT VOLUME 7.4 fl (7.5-11.1); NEUTROPHILS 85.7 % (42.8-82.8); PLATELET COUNT 216 K/MM3 (134-434); RDW 13.9 % (11.9-15.9); WHITE BLOOD COUNT 11.2 K/mm3 (4.0-10.0)
[2017-06-08] MEDS: VANCOMYCIN 1,250 MG in DEXTROSE 5%-WATER - 250 ML IVPB SCH (13:50)
--- NOTE | 2017-06-08 14:31 | PN ---
Progress Note, Physician History of Present Illness: Patient is a 42 year old male with a significant past medical history of CVA with left sided weakness and a kidney transplant 6 years ago. The patient says that he had kidney problems as a child and was on Hemodialysis for several years until he got a Renal transplant 6 years ago. He was reportedly in coma for about 9 months before he went on dialysis He came to the ER complaining of right hand first digit wound. He states he noticed his right hand swelling that began on Friday night, he has pain on the hand relieved with home Advil. He attempted to apply hydrogen peroxide on the wound which broke open the skin. He reports some pus and drainage from the right hand with pain after using the peroxide. Pt reported some pus had drained from wound. He also has chronic +4 pitting left lower ext lymphedema. The patient vows compliace to his anti-rejection meds, even though he does not know the name of them. Maintains good urine output. - Current Medication List Current Medications: Active Medications Albuterol Sulfate (Ventolin Hfa Inhaler -) 1 puff IH Q12H PRN PRN Reason: COUGH Aspirin (Asa -) 81 mg PO DAILY [facility] Last Admin: 06/08/17 09:51 Dose: 81 mg Budesonide/Formoterol Fumarate (Symbicort 80/4.5mcg -) 2 puff IH BID [facility] Last Admin: 06/07/17 21:09 Dose: 2 puff Calcitriol (Rocaltrol -) 0.5 mcg PO DAILY [facility] Last Admin: 06/08/17 09:50 Dose: 0.5 mcg Cinacalcet (Sensipar -) 60 mg PO DAILY [facility] Last Admin: 06/08/17 09:52 Dose: 60 mg Ergocalciferol (Drisdol -) 50,000 unit PO Q7D [facility] Heparin Sodium (Porcine) (Heparin -) 5,000 unit SQ TID [facility] Last Admin: 06/08/17 13:51 Dose: 5,000 unit Vancomycin HCl 1,250 mg/ (Dextrose) 250 mls @ 150 mls/hr IVPB DAILY@1300 [facility] PRN Reason: Protocol Last Admin: 06/08/17 13:50 Dose: 150 mls/hr Piperacillin Sod/Tazobactam (Sod 2.25 gm/ Dextrose) 50 mls @ 100 mls/hr IVPB Q8H-IV [facility] PRN Reason: Protocol Last Admin: 06/08/17 09:50 Dose: 100 mls/hr Metoprolol Tartrate (Lopressor -) 50 mg PO BID [facility] Last Admin: 06/08/17 09:51 Dose: 50 mg Morphine Sulfate (Morphine Injection -) 1 mg IVPB Q4H PRN PRN Reason: PAIN Last Admin: 06/07/17 07:03 Dose: 1 mg Mycophenolate Mofetil (Cellcept -) 500 mg PO BID [facility] Last Admin: 06/08/17 09:52 Dose: 500 mg Nifedipine (Procardia Xl -) 60 mg PO DAILY [facility] Last Admin: 06/08/17 09:50 Dose: 60 mg Pantoprazole Sodium (Protonix -) 40 mg PO DAILY [facility] Last Admin: 06/08/17 09:51 Dose: 40 mg Prednisone (Deltasone -) 5 mg PO DAILY [facility] Last Admin: 06/08/17 09:51 Dose: 5 mg Sodium Bicarbonate (Sodium Bicarbonate -) 650 mg PO BID [facility] Last Admin: 06/08/17 09:51 Dose: 650 mg Tacrolimus (Prograf (Non-Formulary)) 4 mg PO BID [facility] Last Admin: 06/08/17 09:52 Dose: 4 mg - Objective Vital Signs: Vital Signs Temperature 98.0 F 06/08/17 06:39 Pulse Rate 81 06/08/17 10:00 Respiratory Rate 20 06/08/17 10:00 Blood Pressure 152/84 06/08/17 10:00 O2 Sat by Pulse Oximetry (%) 100 06/08/17 09:00 Constitutional: Yes: Well Nourished, Calm Eyes: Yes: Conjunctiva Clear HENT: Yes: Normocephalic Neck: Yes: Trachea Midline Cardiovascular: Yes: Regular Rate and Rhythm, S1, S2 Respiratory: Yes: Regular, CTA Bilaterally, Diminished Gastrointestinal: Yes: Normal Bowel Sounds, Abdomen, Obese Musculoskeletal: Yes: Back Pain Edema: Yes Labs: CBC, BMP 06/08/17 13:30 06/08/17 07:15 Problem List - Problems (1) Cellulitis of arm, right Code(s): L03.113 - CELLULITIS OF RIGHT UPPER LIMB (2) Cellulitis of hand Code(s): L03.119 - CELLULITIS OF UNSPECIFIED PART OF LIMB (3) Immunocompromised patient Code(s): D84.9 - IMMUNODEFICIENCY, UNSPECIFIED (4) Renal transplant recipient Code(s): Z94.0 - KIDNEY TRANSPLANT STATUS (5) End stage kidney disease Code(s): N18.6 - END STAGE RENAL DISEASE Assessment/Plan Patient is a 42 year old male with a significant past medical history of ESRD, S /P Renal transplant, CVA with left sided weakness and a kidney transplant 6 years ago. The Renal functions reflect a degree of Chronic Allograft Rejection. He is being followed at [facility]. He has a new onset finger Infection..On IV Abx. Also has Chronic left sided lymphedema. His allograft is on the right iliac fossa. Plan: Reviewed the labs from today. Stable. Will continue the medications as ordered. Will order Tacrolimus level, since the level can be affected by many conditions including medications, infections etc. Zelda rowley MD
[2017-06-08] MEDS ORDERED: MAGNESIUM OXIDE 400 MG TABLET (FP) PO ONE (15:36)
--- NOTE | 2017-06-08 15:38 | PN ---
Physical Exam: SUBJECTIVE: Patient seen and examined at bedside. States he feels better. OBJECTIVE: Vital Signs Period Temp Pulse Resp BP Sys/Granados Pulse Ox Last 24 Hr 98.0 F-98.2 F 20-81 18-20 139-152/70-84 100-100 GENERAL: The patient is awake, alert, and fully oriented, in no acute distress. HEAD: Normal with no signs of trauma. EYES: PERRL, extraocular movements intact, sclera anicteric, conjunctiva clear. No ptosis. LUNGS: Breath sounds equal, clear to auscultation bilaterally, no wheezes, no crackles, no accessory muscle use. HEART: Regular rate and rhythm, S1, S2 without murmur, rub or gallop. ABDOMEN: Soft, nontender, nondistended, normoactive bowel sounds, no guarding, no rebound UPPER RIGHT EXTREMITY: swelling from fingertips to elbow mildy improved, erythema of forearm improved; fifth digit right hand with purulent drainage LOWER LEFT EXTREMITY: lymphedema; mild erythema and warmth NEUROLOGICAL: Cranial nerves II through XII grossly intact. Normal speech, gait not observed. Laboratory Results - last 24 hr 06/07/17 06/08/17 06/08/17 15:30 07:15 13:30 WBC 11.2 H RBC 4.66 Hgb 13.3 Hct 41.6 MCV 89.4 MCH 28.6 MCHC 32.0 RDW 13.9 Plt Count 216 MPV 7.4 L Neutrophils % 85.7 H Lymphocytes % 1.5 L D Monocytes % 8.5 Eosinophils % 4.0 D Basophils % 0.3 Sodium 143 Potassium 4.5 Chloride 112 H Carbon Dioxide 21 Anion Gap 10 BUN 16 Creatinine 1.8 H Creat Clearance w eGFR 41.19 Random Glucose 87 Calcium 8.8 Phosphorus 2.2 L Magnesium 1.7 L Total Bilirubin 0.5 AST 5 L D ALT 12 Alkaline Phosphatase 76 Total Protein 5.6 L Albumin 2.9 L Urine Color Yellow Urine Appearance Clear Urine pH 5.0 D Ur Specific [place] 1.020 Urine Protein Negative Urine Glucose (UA) Negative Urine Ketones Negative Urine Blood 1+ H Urine Nitrite Negative Urine Bilirubin Negative Urine Urobilinogen Negative Ur Leukocyte Esterase Trace Urine RBC 1 Urine WBC 6 Ur Epithelial Cells Rare Urine Mucus Rare Active Medications Generic Name Dose Route Start Last Admin Trade Name Freq PRN Reason Stop Dose Admin Albuterol Sulfate 1 puff 06/06/17 18:51 Ventolin Hfa Inhaler - IH Q12H PRN COUGH Aspirin 81 mg 06/07/17 10:00 06/08/17 09:51 Asa - PO 81 mg DAILY [facility] Administration Budesonide/Formoterol Fumarate 2 puff 06/06/17 22:00 06/07/17 21:09 Symbicort 80/4.5mcg - IH 2 puff BID [facility] Administration Calcitriol 0.5 mcg 06/07/17 10:00 06/08/17 09:50 Rocaltrol - PO 0.5 mcg DAILY [facility] Administration Cinacalcet 60 mg 06/07/17 10:00 06/08/17 09:52 Sensipar - PO 60 mg DAILY [facility] Administration Ergocalciferol 50,000 unit 06/09/17 10:00 Drisdol - PO Q7D [facility] Heparin Sodium (Porcine) 5,000 unit 06/06/17 22:00 06/08/17 13:51 Heparin - SQ 5,000 unit TID [facility] Administration Vancomycin HCl 1,250 mg/ 250 mls @ 150 mls/hr 06/07/17 13:00 06/08/17 13:50 Dextrose IVPB 150 mls/hr DAILY@1300 [facility] Administration Protocol Piperacillin Sod/Tazobactam 50 mls @ 100 mls/hr 06/06/17 18:45 06/08/17 09:50 Sod 2.25 gm/ Dextrose IVPB 100 mls/hr Q8H-IV [facility] Administration Protocol Magnesium Oxide 800 mg 06/08/17 15:36 Mag-Ox - PO 06/08/17 15:37 ONCE ONE Metoprolol Tartrate 50 mg 06/06/17 22:00 06/08/17 09:51 Lopressor - PO 50 mg BID [facility] Administration Morphine Sulfate 1 mg 06/06/17 19:58 06/07/17 07:03 Morphine Injection - IVPB 1 mg Q4H PRN Administration PAIN Mycophenolate Mofetil 500 mg 06/07/17 13:45 06/08/17 09:52 Cellcept - PO 500 mg BID [facility] Administration Nifedipine 60 mg 06/07/17 10:00 06/08/17 09:50 Procardia Xl - PO 60 mg DAILY [facility] Administration Pantoprazole Sodium 40 mg 06/07/17 10:00 06/08/17 09:51 Protonix - PO 40 mg DAILY [facility] Administration Prednisone 5 mg 06/07/17 10:00 06/08/17 09:51 Deltasone - PO 5 mg DAILY [facility] Administration Sodium Bicarbonate 650 mg 06/06/17 22:00 06/08/17 09:51 Sodium Bicarbonate - PO 650 mg BID [facility] Administration Tacrolimus 4 mg 06/07/17 13:45 06/08/17 09:52 Prograf (Non-Formulary) PO 4 mg BID [facility] Administration ASSESSMENT/PLAN 42 year-old male with a PMH of CVA and intracranial hemorrhage s/p craniectomy ( 2000) and residual left-sided weakness, chronic LLE lymphedema, chronic left great toe wound, ESRD s/p renal transplant (2010 [facility]). Admitted for right 5th digit abscess. Cellulitis of right upper extremity Abscess of right 5th digit --swelling and erythema improved --Xray and CT still pending --continue Zosyn (day #2) and Vanc (day #2) --ID following --hand surgery consult pending Cellulitis of left lower extremity Chronic left great toe wound --mild redness and warmth to distal leg --arterial and venous dopplers unremarkable other than soft tissue edema --antibiotics as above --MRI still pending to r/o osteo Chronic left lower extremity lymphedema --has had full workup at [facility], told chronic condition h/o CVA s/p craniectomy with residual left-sided weakness --no acute issues --continue ASA ESRD s/p right renal transplant Chronic allograft rejection --allograft is on right iliac fossa --continue mycophenelate and tacrolimus --Tacrolimus level ordered Hypomagnesemia --repleted F/E/N Fluids: PO intake adequate Electrolytes: replete as indicated Nutrition: renal diet DVT prophylaxis: subq heparin Disposition: continues to require inpatient care. Full code. Visit type - Emergency Visit Emergency Visit: Yes ED Registration Date: 06/06/17 Care time: The patient presented to the Emergency Department on the above date and was hospitalized for further evaluation of their emergent condition. - New Patient This patient is new to me today: No - Critical Care Critical Care patient: No
[2017-06-09] MEDS ORDERED: PIPERACILLIN/TAZOBACTAM 2.25 GM VIAL IVPB ONE ×3 (01:10→16:45)
[2017-06-09] MEDS ORDERED: DEXTROSE 5%-WATER - 50 ML IVPB ONE ×3 (01:10→16:45)
[2017-06-09] MEDS: PIPERACILLIN/TAZOB 2.25 GM 2.25 GM in DEXTROSE 5%-WATER - 50 ML IVPB SCH ×3 (01:58→17:07)
[2017-06-09] MEDS: HEPARIN NA (PORCINE) 5,000 UNITS/ML 1ML VIAL SQ SCH ×3 (06:26→22:00)
[2017-06-09 08:32] LABS: PHOSPHOROUS 2.3 mg/dL (2.5-4.9)
[2017-06-09] MEDS ORDERED: PT OWN MED DRAWER 7, Y5N ONE ×2 (09:30→21:58)
[2017-06-09] MEDS: MYCOPHENOLATE MOFETIL 500 MG TABLET PO SCH ×2 (09:44→22:00)
[2017-06-09] MEDS: ASPIRIN 81 MG CHEWABLE TABLETS PO SCH (09:44)
[2017-06-09] MEDS: NIFEdipine E.R 60 MG TABLET (UD) PO SCH (09:44)
[2017-06-09] MEDS: predniSONE 5 MG TABLET (UD) PO SCH (09:44)
[2017-06-09] MEDS: CALCITRIOL 0.25 MCG CAPSULE (FP) PO SCH (09:45)
[2017-06-09] MEDS: METOPROLOL TARTRATE 50 MG TABLET (FP) PO SCH ×2 (09:45→21:59)
[2017-06-09] MEDS: PANTOPRAZOLE 40 MG TABLET (FP) PO SCH (09:45)
[2017-06-09] MEDS: CINACALCET HCL 30 MG TAB (FP) PO SCH (09:46)
[2017-06-09] MEDS: SODIUM BICARBONATE 650 MG TABLET PO SCH ×2 (09:46→21:59)
[2017-06-09] MEDS: BUDESONIDE/FORMETEROL FUMARATE 80/4.5 mcg INHALER IH SCH ×2 (09:48→22:01)
[2017-06-09] MEDS: TACROLIMUS ANHYDROUS 1 MG CAPSULE (NF) PO SCH ×2 (09:48→22:00)
[2017-06-09] MEDS ORDERED: ERGOCALCIFEROL (VITAMIN D2) 50,000 UNIT CAPSULE (FP) PO SCH (10:00)
[2017-06-09 10:11] LABS: ANION GAP 12 (8-16); CALCIUM 9.1 mg/dL (8.5-10.1); CO2 21 mmol/L (21-32); CREATININE 1.9 mg/dL (0.7-1.3); GLUCOSE,RANDOM 83 mg/dL (74-106)
--- NOTE | 2017-06-09 10:40 | PN ---
Progress Note (short form) - Note Progress Note: Renal Follow up for ESRD s/p Renal Transplant Pt seen and examined at the bedside awake and alert no acute complaints no SOB, Chest pain, Abd pain, N/V/d good urine output Vital Signs Temperature 97.5 F L 06/09/17 05:55 Pulse Rate 75 06/09/17 05:55 Respiratory Rate 18 06/09/17 05:55 Blood Pressure 127/73 06/09/17 05:55 O2 Sat by Pulse Oximetry (%) 100 06/08/17 20:18 Intake & Output 06/06/17 06/07/17 06/08/17 06/09/17 23:59 23:59 23:59 23:59 Intake Total 100 1999 1100 900 Output Total 902 2 Balance 100 1999 198 898 Weight 307 lb 6.4 oz Gen: NAD CVS: RRR, No M/R Lung: CTA Abd: soft NT/ND Ext: b/l LE edema, L>R CBC, BMP 06/08/17 13:30 06/09/17 07:30 Laboratory Tests 06/09/17 06/09/17 07:30 07:30 Calcium 9.1 Phosphorus 2.3 L Magnesium 2.0 Tacrolimus Pending Current Medications Albuterol Sulfate (Ventolin Hfa Inhaler -) 1 puff IH Q12H PRN PRN Reason: COUGH Aspirin (Asa -) 81 mg PO DAILY [facility] Last Admin: 06/09/17 09:44 Dose: 81 mg Budesonide/Formoterol Fumarate (Symbicort 80/4.5mcg -) 2 puff IH BID [facility] Last Admin: 06/09/17 09:48 Dose: 2 puff Calcitriol (Rocaltrol -) 0.5 mcg PO DAILY [facility] Last Admin: 06/09/17 09:45 Dose: 0.5 mcg Cinacalcet (Sensipar -) 60 mg PO DAILY [facility] Last Admin: 06/09/17 09:46 Dose: 60 mg Ergocalciferol (Drisdol -) 50,000 unit PO Q7D [facility] Last Admin: 06/09/17 09:45 Dose: 50,000 unit Heparin Sodium (Porcine) (Heparin -) 5,000 unit SQ TID [facility] Last Admin: 06/09/17 06:26 Dose: 5,000 unit Vancomycin HCl 1,250 mg/ (Dextrose) 250 mls @ 150 mls/hr IVPB DAILY@1300 SHAKEEL PRN Reason: Protocol Last Admin: 06/08/17 13:50 Dose: 150 mls/hr Piperacillin Sod/Tazobactam (Sod 2.25 gm/ Dextrose) 50 mls @ 100 mls/hr IVPB Q8H-IV [facility] PRN Reason: Protocol Last Admin: 06/09/17 09:38 Dose: 100 mls/hr Metoprolol Tartrate (Lopressor -) 50 mg PO BID [facility] Last Admin: 06/09/17 09:45 Dose: 50 mg Morphine Sulfate (Morphine Injection -) 1 mg IVPB Q4H PRN PRN Reason: PAIN Last Admin: 06/07/17 07:03 Dose: 1 mg Mycophenolate Mofetil (Cellcept -) 500 mg PO BID [facility] Last Admin: 06/09/17 09:44 Dose: 500 mg Nifedipine (Procardia Xl -) 60 mg PO DAILY [facility] Last Admin: 06/09/17 09:44 Dose: 60 mg Pantoprazole Sodium (Protonix -) 40 mg PO DAILY [facility] Last Admin: 06/09/17 09:45 Dose: 40 mg Prednisone (Deltasone -) 5 mg PO DAILY [facility] Last Admin: 06/09/17 09:44 Dose: 5 mg Sodium Bicarbonate (Sodium Bicarbonate -) 650 mg PO BID [facility] Last Admin: 06/09/17 09:46 Dose: 650 mg Tacrolimus (Prograf (Non-Formulary)) 4 mg PO BID [facility] Last Admin: 06/09/17 09:48 Dose: 4 mg a/p 42 year old Gentleman with PMhx of ESRD s/p Renal Transplant ~5 years ago ( follow at [facility]), Hypertension, Secondary Hyperparathyrodisim who presented with a wound on his finger. #ESRD s/p Renal Transplant will need to obtain baseline kidney function from [facility] Continue Tacrolimus 4mg BID, Cellcept 500mg BID, prednisone 5mg daily continue isotonic IVF for 24 hours Trend BUN/CR #Wound on finger continue Vanco and Zosyn Trend Vanco levels #Le edema ? lymphedema to get CT of LE Thank you Robert Linares DO
--- NOTE | 2017-06-09 11:49 | PN ---
Physical Exam: SUBJECTIVE: Patient seen and examined at bedside. Says feels good. OBJECTIVE: Vital Signs Period Temp Pulse Resp BP Sys/Granados Pulse Ox Last 24 Hr 97.5 F-98.4 F 64-75 18-20 114-146/73-80 100 GENERAL: The patient is awake, alert, and fully oriented, in no acute distress. HEAD: Normal with no signs of trauma. EYES: PERRL, extraocular movements intact, sclera anicteric, conjunctiva clear. No ptosis. LUNGS: Breath sounds equal, clear to auscultation bilaterally, no wheezes, no crackles, no accessory muscle use. HEART: Regular rate and rhythm, S1, S2 without murmur, rub or gallop. ABDOMEN: Soft, nontender, nondistended, normoactive bowel sounds, no guarding, no rebound UPPER RIGHT EXTREMITY: swelling from fingertips to elbow improved, erythema of forearm resolved; fifth digit right hand dressing c/d/i LOWER LEFT EXTREMITY: lymphedema improved; erythema resolved NEUROLOGICAL: Cranial nerves II through XII grossly intact. Normal speech, gait not observed. Laboratory Results - last 24 hr 06/08/17 06/09/17 06/09/17 13:30 07:30 07:30 WBC 11.2 H RBC 4.66 Hgb 13.3 Hct 41.6 MCV 89.4 MCH 28.6 MCHC 32.0 RDW 13.9 Plt Count 216 MPV 7.4 L Neutrophils % 85.7 H Lymphocytes % 1.5 L D Monocytes % 8.5 Eosinophils % 4.0 D Basophils % 0.3 Sodium 143 Cancelled Potassium 4.4 Cancelled Chloride 110 H Cancelled Carbon Dioxide 21 Cancelled Anion Gap 12 Cancelled BUN 14 Cancelled Creatinine 1.9 H Cancelled Random Glucose 83 Cancelled Calcium 9.1 Cancelled Phosphorus 2.3 L Magnesium 2.0 Active Medications Generic Name Dose Route Start Last Admin Trade Name Freq PRN Reason Stop Dose Admin Albuterol Sulfate 1 puff 06/06/17 18:51 Ventolin Hfa Inhaler - IH Q12H PRN COUGH Aspirin 81 mg 06/07/17 10:00 06/09/17 09:44 Asa - PO 81 mg DAILY [facility] Administration Budesonide/Formoterol Fumarate 2 puff 06/06/17 22:00 06/09/17 09:48 Symbicort 80/4.5mcg - IH 2 puff BID [facility] Administration Calcitriol 0.5 mcg 06/07/17 10:00 06/09/17 09:45 Rocaltrol - PO 0.5 mcg DAILY [facility] Administration Cinacalcet 60 mg 06/07/17 10:00 06/09/17 09:46 Sensipar - PO 60 mg DAILY [facility] Administration Ergocalciferol 50,000 unit 06/09/17 10:00 06/09/17 09:45 Drisdol - PO 50,000 unit Q7D [facility] Administration Heparin Sodium (Porcine) 5,000 unit 06/06/17 22:00 06/09/17 06:26 Heparin - SQ 5,000 unit TID [facility] Administration Vancomycin HCl 1,250 mg/ 250 mls @ 150 mls/hr 06/07/17 13:00 06/08/17 13:50 Dextrose IVPB 150 mls/hr DAILY@1300 SHAKEEL Administration Protocol Piperacillin Sod/Tazobactam 50 mls @ 100 mls/hr 06/06/17 18:45 06/09/17 09:38 Sod 2.25 gm/ Dextrose IVPB 100 mls/hr Q8H-IV [facility] Administration Protocol Sodium Chloride 1,000 mls @ 75 mls/hr 06/09/17 11:30 Normal Saline - IV ASDIR SHAKEEL Metoprolol Tartrate 50 mg 06/06/17 22:00 06/09/17 09:45 Lopressor - PO 50 mg BID [facility] Administration Morphine Sulfate 1 mg 06/06/17 19:58 06/07/17 07:03 Morphine Injection - IVPB 1 mg Q4H PRN Administration PAIN Mycophenolate Mofetil 500 mg 06/07/17 13:45 06/09/17 09:44 Cellcept - PO 500 mg BID [facility] Administration Nifedipine 60 mg 06/07/17 10:00 06/09/17 09:44 Procardia Xl - PO 60 mg DAILY [facility] Administration Pantoprazole Sodium 40 mg 06/07/17 10:00 06/09/17 09:45 Protonix - PO 40 mg DAILY [facility] Administration Potassium Phos/Sodium Phos 1 packet 06/09/17 14:00 Phos-Nak Packet - PO 06/10/17 06:01 TID SHAKEEL Prednisone 5 mg 06/07/17 10:00 06/09/17 09:44 Deltasone - PO 5 mg DAILY [facility] Administration Sodium Bicarbonate 650 mg 06/06/17 22:00 06/09/17 09:46 Sodium Bicarbonate - PO 650 mg BID [facility] Administration Tacrolimus 4 mg 06/07/17 13:45 06/09/17 09:48 Prograf (Non-Formulary) PO 4 mg BID [facility] Administration ASSESSMENT/PLAN 42 year-old male with a PMH of CVA and intracranial hemorrhage s/p craniectomy ( 2000) and residual left-sided weakness, chronic LLE lymphedema, chronic left great toe wound, ESRD s/p renal transplant (2010 [facility]). Admitted for right 5th digit abscess. Cellulitis of right upper extremity Abscess of right 5th digit --seen 06/[address] Whitlock; deep abscess culture collected and sent; drained, packed x 8 hours; warm soaks q4h when awake then dry dressing --Xray and CT still pending --continue Zosyn (day #3) and Vanc (day #3) --ID following Cellulitis of left lower extremity Chronic left great toe wound --arterial and venous dopplers unremarkable other than soft tissue edema --MRI not suspicious for osteo of right foot --antibiotics as above Chronic left lower extremity lymphedema --has had full workup at [facility], told chronic condition h/o CVA s/p craniectomy with residual left-sided weakness --no acute issues --continue ASA ESRD s/p right renal transplant 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 Full code. Visit type - Emergency Visit Emergency Visit: Yes ED Registration Date: 06/06/17 Care time: The patient presented to the Emergency Department on the above date and was hospitalized for further evaluation of their emergent condition. - New Patient This patient is new to me today: No - Critical Care Critical Care patient: No
[2017-06-09] MEDS: VANCOMYCIN 1,250 MG in DEXTROSE 5%-WATER - 250 ML IVPB SCH (13:03)
[2017-06-09] MEDS: SODIUM CHLORIDE 1,000 ML IV SCH (13:05)
[2017-06-09] MEDS: NAPH,MB-DB/K PH,MBDB POWDER PACKET PO SCH ×2 (13:58→22:00)
[2017-06-09 15:28] LABS: BASOPHIL 0.3 % (0-2.0); EOSINOPHIL 6.1 % (0-4.5); MCH 28.6 pg (25.7-33.7); MCHC 32.1 g/dl (32.0-35.9); MEAN PLT VOLUME 7.6 fl (7.5-11.1); NEUTROPHILS 80.6 % (42.8-82.8); PLATELET COUNT 237 K/MM3 (134-434); WHITE BLOOD COUNT 10.8 K/mm3 (4.0-10.0)
--- NOTE | 2017-06-09 15:30 | PN ---
Progress Note, Physician History of Present Illness: feels much better thumb drained cx result noted - Current Medication List Current Medications: Active Medications Albuterol Sulfate (Ventolin Hfa Inhaler -) 1 puff IH Q12H PRN PRN Reason: COUGH Aspirin (Asa -) 81 mg PO DAILY [facility] Last Admin: 06/09/17 09:44 Dose: 81 mg Budesonide/Formoterol Fumarate (Symbicort 80/4.5mcg -) 2 puff IH BID [facility] Last Admin: 06/09/17 09:48 Dose: 2 puff Calcitriol (Rocaltrol -) 0.5 mcg PO DAILY [facility] Last Admin: 06/09/17 09:45 Dose: 0.5 mcg Cinacalcet (Sensipar -) 60 mg PO DAILY [facility] Last Admin: 06/09/17 09:46 Dose: 60 mg Ergocalciferol (Drisdol -) 50,000 unit PO Q7D [facility] Last Admin: 06/09/17 09:45 Dose: 50,000 unit Heparin Sodium (Porcine) (Heparin -) 5,000 unit SQ TID [facility] Last Admin: 06/09/17 13:57 Dose: 5,000 unit Vancomycin HCl 1,250 mg/ (Dextrose) 250 mls @ 150 mls/hr IVPB DAILY@1300 SHAKEEL PRN Reason: Protocol Last Admin: 06/09/17 13:03 Dose: 150 mls/hr Piperacillin Sod/Tazobactam (Sod 2.25 gm/ Dextrose) 50 mls @ 100 mls/hr IVPB Q8H-IV [facility] PRN Reason: Protocol Last Admin: 06/09/17 09:38 Dose: 100 mls/hr Sodium Chloride (Normal Saline -) 1,000 mls @ 75 mls/hr IV ASDIR [facility] Last Admin: 06/09/17 13:05 Dose: 75 mls/hr Metoprolol Tartrate (Lopressor -) 50 mg PO BID [facility] Last Admin: 06/09/17 09:45 Dose: 50 mg Morphine Sulfate (Morphine Injection -) 1 mg IVPB Q4H PRN PRN Reason: PAIN Last Admin: 06/07/17 07:03 Dose: 1 mg Mycophenolate Mofetil (Cellcept -) 500 mg PO BID [facility] Last Admin: 06/09/17 09:44 Dose: 500 mg Nifedipine (Procardia Xl -) 60 mg PO DAILY [facility] Last Admin: 06/09/17 09:44 Dose: 60 mg Pantoprazole Sodium (Protonix -) 40 mg PO DAILY [facility] Last Admin: 06/09/17 09:45 Dose: 40 mg Potassium Phos/Sodium Phos (Phos-Nak Packet -) 1 packet PO TID [facility] Stop: 06/10/17 06:01 Last Admin: 06/09/17 13:58 Dose: 1 packet Prednisone (Deltasone -) 5 mg PO DAILY [facility] Last Admin: 06/09/17 09:44 Dose: 5 mg Sodium Bicarbonate (Sodium Bicarbonate -) 650 mg PO BID [facility] Last Admin: 06/09/17 09:46 Dose: 650 mg Tacrolimus (Prograf (Non-Formulary)) 4 mg PO BID [facility] Last Admin: 06/09/17 09:48 Dose: 4 mg - Objective Vital Signs: Vital Signs Temperature 97.9 F 06/09/17 14:00 Pulse Rate 74 06/09/17 14:00 Respiratory Rate 20 06/09/17 14:00 Blood Pressure 138/72 06/09/17 14:00 O2 Sat by Pulse Oximetry (%) 99 06/09/17 09:00 Constitutional: Yes: No Distress, Calm, Obese Cardiovascular: Yes: Regular Rate and Rhythm Respiratory: Yes: Regular, CTA Bilaterally Gastrointestinal: Yes: Normal Bowel Sounds, Soft Musculoskeletal: Yes: Other Extremities: Yes: Other Wound/Incision: Yes: Dressing Dry and Intact Neurological: Yes: Alert, Oriented Psychiatric: Yes: Alert, Oriented Labs: CBC, BMP 06/09/17 07:30 Assessment/Plan - Problems (1) Cellulitis of hand Code(s): L03.119 - CELLULITIS OF UNSPECIFIED PART OF LIMB (2) Immunocompromised patient Code(s): D84.9 - IMMUNODEFICIENCY, UNSPECIFIED (3) Renal transplant recipient Code(s): Z94.0 - KIDNEY TRANSPLANT STATUS (4) Cellulitis of hand, right Code(s): L03.113 - CELLULITIS OF RIGHT UPPER LIMB plan will stop vanco continue zosyn wound care rest as per primary team
[2017-06-10] MEDS ORDERED: PIPERACILLIN/TAZOBACTAM 2.25 GM VIAL IVPB ONE ×3 (02:15→17:45)
[2017-06-10] MEDS ORDERED: DEXTROSE 5%-WATER - 50 ML IVPB ONE ×3 (02:16→17:45)
[2017-06-10] MEDS: PIPERACILLIN/TAZOB 2.25 GM 2.25 GM in DEXTROSE 5%-WATER - 50 ML IVPB SCH ×3 (02:19→17:51)
[2017-06-10] MEDS: NAPH,MB-DB/K PH,MBDB POWDER PACKET PO SCH (05:53)
[2017-06-10] MEDS: HEPARIN NA (PORCINE) 5,000 UNITS/ML 1ML VIAL SQ SCH ×3 (05:53→21:26)
[2017-06-10 08:36] LABS: ANION GAP 8 (8-16); CALCIUM 8.4 mg/dL (8.5-10.1); CO2 25 mmol/L (21-32); CREATININE 1.9 mg/dL (0.7-1.3); GLUCOSE,RANDOM 78 mg/dL (74-106); MAGNESIUM 1.8 mg/dL (1.8-2.4); PHOSPHOROUS 3.2 mg/dL (2.5-4.9)
--- NOTE | 2017-06-10 09:54 | PN ---
Physical Exam: SUBJECTIVE: Patient seen and examined. Voices no complaints. OBJECTIVE: Vital Signs Period Temp Pulse Resp BP Sys/Granados Pulse Ox Last 24 Hr 97.9 F-98.7 F 67-75 20-20 120-140/60-75 97-99 GENERAL: The patient is awake, alert, and fully oriented, in no acute distress. HEAD: Normal with no signs of trauma. EYES: PERRL, extraocular movements intact, sclera anicteric, conjunctiva clear. No ptosis. LUNGS: Breath sounds equal, clear to auscultation bilaterally, no wheezes, no crackles, no accessory muscle use. HEART: Regular rate and rhythm, S1, S2 without murmur, rub or gallop. ABDOMEN: Soft, nontender, nondistended, normoactive bowel sounds, no guarding, no rebound UPPER RIGHT EXTREMITY: swelling from fingertips to elbow improved, erythema of forearm resolved; fifth digit right hand wound is open with pus visible LOWER LEFT EXTREMITY: lymphedema improved; erythema resolved NEUROLOGICAL: Cranial nerves II through XII grossly intact. Normal speech, gait not observed. Laboratory Results - last 24 hr 06/09/17 06/09/17 06/10/17 07:30 14:10 06:00 WBC 10.8 H RBC 4.79 Hgb 13.7 Hct 42.6 MCV 89.0 MCH 28.6 MCHC 32.1 RDW 14.0 Plt Count 237 MPV 7.6 Neutrophils % 80.6 Lymphocytes % 2.2 L D Monocytes % 10.8 H Eosinophils % 6.1 H Basophils % 0.3 Sodium 143 Potassium 4.4 Chloride 110 H Carbon Dioxide 21 Anion Gap 12 BUN 14 Creatinine 1.9 H Random Glucose 83 Calcium 9.1 Phosphorus 2.3 L Magnesium 2.0 Random Vancomycin 14.218 06/10/17 06:00 WBC RBC Hgb Hct MCV MCH MCHC RDW Plt Count MPV Neutrophils % Lymphocytes % Monocytes % Eosinophils % Basophils % Sodium 143 Potassium 4.3 Chloride 110 H Carbon Dioxide 25 Anion Gap 8 BUN 15 Creatinine 1.9 H Random Glucose 78 Calcium 8.4 L Phosphorus 3.2 D Magnesium 1.8 Random Vancomycin Current Medications Generic Name Dose Route Start Last Admin Trade Name Freq PRN Reason Stop Dose Admin Albuterol Sulfate 1 puff 06/06/17 18:51 Ventolin Hfa Inhaler - IH Q12H PRN COUGH Aspirin 81 mg 09/02/17 10:00 06/10/17 10:10 Asa - PO 81 mg DAILY SHAKEEL Administration Budesonide/Formoterol Fumarate 2 puff 06/06/17 22:00 06/10/17 10:11 Symbicort 80/4.5mcg - IH 2 puff BID SHAKEEL Administration Calcitriol 0.5 mcg 06/07/17 10:00 06/10/17 10:09 Rocaltrol - PO 0.5 mcg DAILY SHAKEEL Administration Cinacalcet 60 mg 06/07/17 10:00 06/10/17 10:15 Sensipar - PO 60 mg DAILY SHAKEEL Administration Ergocalciferol 50,000 unit 06/09/17 10:00 06/09/17 09:45 Drisdol - PO 50,000 unit Q7D SHAKE[facility] Administration Heparin Sodium (Porcine) 5,000 unit 06/06/17 22:00 06/10/17 14:26 Heparin - SQ 5,000 unit TID SHAKE[facility] Administration Piperacillin Sod/Tazobactam 50 mls @ 100 mls/hr 06/06/17 18:45 06/10/17 17:51 Sod 2.25 gm/ Dextrose IVPB 100 mls/hr Q8H-IV [facility]KE[facility] Administration Protocol Sodium Chloride 1,000 mls @ 75 mls/hr 06/09/17 11:30 06/10/17 12:34 Normal Saline - IV 75 mls/hr ASDIR SHAKE[facility] Administration Vancomycin HCl 1,250 mg/ 250 mls @ 250 mls/hr 06/10/17 14:45 06/10/17 17:51 Dextrose IVPB 250 mls/hr DAILY SHAKE[facility] Administration Protocol Metoprolol Tartrate 50 mg 06/06/17 22:00 06/10/17 10:10 Lopressor - PO 50 mg BID SHAKEEL Administration Mycophenolate Sodium 720 mg 06/11/17 10:00 Mycophenolic Acid PO DAILY SHAKE[facility] Mycophenolate Sodium 360 mg 06/10/17 22:00 Mycophenolic Acid PO DAILY@2200 SHAKE[facility] Nifedipine 60 mg 06/07/17 10:00 06/10/17 10:13 Procardia Xl - PO 60 mg DAILY SHAKE[facility] Administration Pantoprazole Sodium 40 mg 06/07/17 10:00 06/10/17 10:10 Protonix - PO 40 mg DAILY SHAKE[facility] Administration Prednisone 5 mg 06/07/17 10:00 06/10/17 10:10 Deltasone - PO 5 mg DAILY SHAKE[facility] Administration Sodium Bicarbonate 650 mg 06/06/17 22:00 06/10/17 10:10 Sodium Bicarbonate - PO 650 mg BID SHAKEEL Administration Tacrolimus 4 mg 06/11/17 10:00 Prograf (Non-Formulary) PO DAILY SHAKE[facility] Tacrolimus 3 mg 06/10/17 22:00 Prograf (Non-Formulary) PO HS [facility] Microbiology 06/06/17 13:06 Blood - Peripheral Venous Blood Culture - Preliminary NO GROWTH OBTAINED AFTER 96 HOURS, INCUBATION TO CONTINUE FOR 1 DAYS. 06/06/17 13:06 Blood - Peripheral Venous Blood Culture - Preliminary NO GROWTH OBTAINED AFTER 96 HOURS, INCUBATION TO CONTINUE FOR 1 DAYS. 06/06/17 16:13 Toe - Left Hallux Gram Stain - Final 06/06/17 16:13 Toe - Left Hallux Wound Culture - Final Klebsiella Pneumoniae Enterobacter Cloacae Enterobacter Cloacae#2 Enterococcus Casseliflavus Diphtheroid/Corynebacterium Streptococcus Viridans Proteus Mirabilis 06/08/17 12:00 Abscess Gram Stain - Final 06/08/17 12:00 Abscess Wound Culture - Preliminary Staphylococcus Latex Coag Pos 06/08/17 12:00 Finger - Right Thumb Gram Stain - Final 06/08/17 12:00 Finger - Right Thumb Wound Culture - Preliminary Presumptive Mrsa (Pbp2a Pos) 06/07/17 18:00 Nares - Mrsa Screen - Right MRSA Screen - Final NO MRSA ISOLATED 06/07/17 18:00 Nares - Mrsa Screen - Left MRSA Screen - Final NO MRSA ISOLATED 06/06/17 13:06 Urine - Urine Clean Catch Urine Culture - Final NO GROWTH OBTAINED ASSESSMENT/PLAN 42 year-old male with a PMH of CVA and intracranial hemorrhage s/p craniectomy ( 2000) and residual left-sided weakness, chronic LLE lymphedema, chronic left great toe wound, ESRD s/p renal transplant (2010 [facility]). Admitted for right 5th digit abscess. Cellulitis of right upper extremity Abscess of right 5th digit --seen 06/[address] Whitlock; deep abscess culture collected and sent --culture positive today for MRSA --continue Zosyn (day #5) and restart Vanc (day #5) --MRI right hand to r/o osteo --ID following Cellulitis of left lower extremity Chronic left great toe wound --arterial and venous dopplers unremarkable other than soft tissue edema --MRI not suspicious for osteo of right foot --antibiotics as above Chronic left lower extremity lymphedema --has had full workup at [facility], told chronic condition h/o CVA s/p craniectomy with residual left-sided weakness --no acute issues --continue ASA ESRD s/p right renal transplant 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 Full code. Visit type - Emergency Visit Emergency Visit: Yes ED Registration Date: 06/06/17 Care time: The patient presented to the Emergency Department on the above date and was hospitalized for further evaluation of their emergent condition. - New Patient This patient is new to me today: No - Critical Care Critical Care patient: No
[2017-06-10] MEDS: CALCITRIOL 0.25 MCG CAPSULE (FP) PO SCH (10:09)
[2017-06-10] MEDS: PANTOPRAZOLE 40 MG TABLET (FP) PO SCH (10:10)
[2017-06-10] MEDS: SODIUM BICARBONATE 650 MG TABLET PO SCH ×2 (10:10→21:26)
[2017-06-10] MEDS: METOPROLOL TARTRATE 50 MG TABLET (FP) PO SCH ×2 (10:10→21:25)
[2017-06-10] MEDS: predniSONE 5 MG TABLET (UD) PO SCH (10:10)
[2017-06-10] MEDS: ASPIRIN 81 MG CHEWABLE TABLETS PO SCH (10:10)
[2017-06-10] MEDS: BUDESONIDE/FORMETEROL FUMARATE 80/4.5 mcg INHALER IH SCH ×2 (10:11→21:28)
[2017-06-10] MEDS: NIFEdipine E.R 60 MG TABLET (UD) PO SCH (10:13)
[2017-06-10] MEDS: MYCOPHENOLATE MOFETIL 500 MG TABLET PO SCH (10:14)
[2017-06-10] MEDS: TACROLIMUS ANHYDROUS 1 MG CAPSULE (NF) PO SCH (10:15)
[2017-06-10] MEDS: CINACALCET HCL 30 MG TAB (FP) PO SCH (10:15)
[2017-06-10] MEDS: SODIUM CHLORIDE 1,000 ML IV SCH (12:34)
--- NOTE | 2017-06-10 14:06 | PN ---
Progress Note (short form) - Note Progress Note: Renal Follow up for ESRD s/p Renal Transplant Pt seen and examined at the bedside no acute complaints finger wound out of dressing, no discharge or bleeding Vital Signs Temperature 98.0 F 06/10/17 08:34 Pulse Rate 71 06/10/17 08:34 Respiratory Rate 20 06/10/17 08:34 Blood Pressure 140/75 06/10/17 08:34 O2 Sat by Pulse Oximetry (%) 97 06/10/17 09:00 Intake & Output 06/07/17 06/08/17 06/09/17 06/10/17 23:59 23:59 23:59 23:59 Intake Total 1999 1100 2550 1340 Output Total 902 1802 Balance 1999 515 067 5605 Gen: NAD CVS: RRR, No M/R Lung: CTA Abd: soft NT/ND Ext: b/l LE edema, L>R CBC, BMP 06/09/17 14:10 06/10/17 06:00 Laboratory Tests 06/10/17 06:00 Calcium 8.4 L Phosphorus 3.2 D Magnesium 1.8 Current Medications Albuterol Sulfate (Ventolin Hfa Inhaler -) 1 puff IH Q12H PRN PRN Reason: COUGH Aspirin (Asa -) 81 mg PO DAILY [facility] Last Admin: 06/10/17 10:10 Dose: 81 mg Budesonide/Formoterol Fumarate (Symbicort 80/4.5mcg -) 2 puff IH BID [facility] Last Admin: 06/10/17 10:11 Dose: 2 puff Calcitriol (Rocaltrol -) 0.5 mcg PO DAILY [facility] Last Admin: 06/10/17 10:09 Dose: 0.5 mcg Cinacalcet (Sensipar -) 60 mg PO DAILY [facility] Last Admin: 06/10/17 10:15 Dose: 60 mg Ergocalciferol (Drisdol -) 50,000 unit PO Q7D [facility] Last Admin: 06/09/17 09:45 Dose: 50,000 unit Heparin Sodium (Porcine) (Heparin -) 5,000 unit SQ TID [facility] Last Admin: 06/10/17 05:53 Dose: 5,000 unit Piperacillin Sod/Tazobactam (Sod 2.25 gm/ Dextrose) 50 mls @ 100 mls/hr IVPB Q8H-IV [facility] PRN Reason: Protocol Last Admin: 06/10/17 10:10 Dose: 100 mls/hr Sodium Chloride (Normal Saline -) 1,000 mls @ 75 mls/hr IV ASDIR [facility] Last Admin: 06/10/17 12:34 Dose: 75 mls/hr Metoprolol Tartrate (Lopressor -) 50 mg PO BID [facility] Last Admin: 06/10/17 10:10 Dose: 50 mg Mycophenolate Sodium (Mycophenolic Acid) 720 mg PO DAILY [facility] Mycophenolate Sodium (Mycophenolic Acid) 360 mg PO DAILY@2200 [facility]KE[facility] Nifedipine (Procardia Xl -) 60 mg PO DAILY [facility] Last Admin: 06/10/17 10:13 Dose: 60 mg Pantoprazole Sodium (Protonix -) 40 mg PO DAILY [facility] Last Admin: 06/10/17 10:10 Dose: 40 mg Prednisone (Deltasone -) 5 mg PO DAILY [facility] Last Admin: 06/10/17 10:10 Dose: 5 mg Sodium Bicarbonate (Sodium Bicarbonate -) 650 mg PO BID [facility] Last Admin: 06/10/17 10:10 Dose: 650 mg Tacrolimus (Prograf (Non-Formulary)) 4 mg PO DAILY [facility] Tacrolimus (Prograf (Non-Formulary)) 3 mg PO HS SHAKEEL a/p 42 year old Gentleman with PMhx of ESRD s/p Renal Transplant ~5 years ago ( follow at [facility]), Hypertension, Secondary Hyperparathyrodisim who presented with a wound on his finger. #ESRD s/p Renal Transplant baseline Cr is 1.8-2 as per [facility] pt is on Myfortic 720mg in AM and 360mg in the evening as well as tacrolimus 4mg in the AM and 3mg in the evening orders were changed to reflect his home dosage Renal function remains stable #Wound on finger wound cultures noted Abx as per ID #Le edema MRI of LE suspicious for cellulitis ? clinically appears like lymphedema no tenderness or warmth on examination Thank you Robert Linares DO
--- NOTE | 2017-06-10 14:36 | PN ---
Progress Note, Physician History of Present Illness: feels much better finger drained cx result noted - Current Medication List Current Medications: Active Medications Albuterol Sulfate (Ventolin Hfa Inhaler -) 1 puff IH Q12H PRN PRN Reason: COUGH Aspirin (Asa -) 81 mg PO DAILY [facility] Last Admin: 06/10/17 10:10 Dose: 81 mg Budesonide/Formoterol Fumarate (Symbicort 80/4.5mcg -) 2 puff IH BID [facility] Last Admin: 06/10/17 10:11 Dose: 2 puff Calcitriol (Rocaltrol -) 0.5 mcg PO DAILY [facility] Last Admin: 06/10/17 10:09 Dose: 0.5 mcg Cinacalcet (Sensipar -) 60 mg PO DAILY [facility] Last Admin: 06/10/17 10:15 Dose: 60 mg Ergocalciferol (Drisdol -) 50,000 unit PO Q7D [facility] Last Admin: 06/09/17 09:45 Dose: 50,000 unit Heparin Sodium (Porcine) (Heparin -) 5,000 unit SQ TID [facility] Last Admin: 06/10/17 14:26 Dose: 5,000 unit Piperacillin Sod/Tazobactam (Sod 2.25 gm/ Dextrose) 50 mls @ 100 mls/hr IVPB Q8H-IV [facility]KE[facility] PRN Reason: Protocol Last Admin: 06/10/17 10:10 Dose: 100 mls/hr Sodium Chloride (Normal Saline -) 1,000 mls @ 75 mls/hr IV ASDIR [facility] Last Admin: 06/10/17 12:34 Dose: 75 mls/hr Metoprolol Tartrate (Lopressor -) 50 mg PO BID [facility] Last Admin: 06/10/17 10:10 Dose: 50 mg Mycophenolate Sodium (Mycophenolic Acid) 720 mg PO DAILY [facility] Mycophenolate Sodium (Mycophenolic Acid) 360 mg PO DAILY@2200 [facility] Nifedipine (Procardia Xl -) 60 mg PO DAILY [facility] Last Admin: 06/10/17 10:13 Dose: 60 mg Pantoprazole Sodium (Protonix -) 40 mg PO DAILY [facility] Last Admin: 06/10/17 10:10 Dose: 40 mg Prednisone (Deltasone -) 5 mg PO DAILY [facility] Last Admin: 06/10/17 10:10 Dose: 5 mg Sodium Bicarbonate (Sodium Bicarbonate -) 650 mg PO BID [facility] Last Admin: 06/10/17 10:10 Dose: 650 mg Tacrolimus (Prograf (Non-Formulary)) 4 mg PO DAILY [facility] Tacrolimus (Prograf (Non-Formulary)) 3 mg PO HS [facility] - Objective Vital Signs: Vital Signs Temperature 98.3 F 06/10/17 14:00 Pulse Rate 73 06/10/17 14:00 Respiratory Rate 22 06/10/17 14:00 Blood Pressure 140/75 06/10/17 08:34 O2 Sat by Pulse Oximetry (%) 97 06/10/17 09:00 Constitutional: Yes: No Distress, Calm HENT: Yes: Atraumatic Respiratory: Yes: Regular, CTA Bilaterally Gastrointestinal: Yes: Normal Bowel Sounds, Soft Musculoskeletal: Yes: Other Extremities: Yes: Other Wound/Incision: Yes: Open to air, Other Neurological: Yes: Alert, Oriented Psychiatric: Yes: Alert, Oriented Labs: CBC, BMP 06/09/17 14:10 06/10/17 06:00 Assessment/Plan - Problems (1) Cellulitis of hand Code(s): L03.119 - CELLULITIS OF UNSPECIFIED PART OF LIMB (2) Immunocompromised patient Code(s): D84.9 - IMMUNODEFICIENCY, UNSPECIFIED (3) Renal transplant recipient Code(s): Z94.0 - KIDNEY TRANSPLANT STATUS (4) Cellulitis of hand, right Code(s): L03.113 - CELLULITIS OF RIGHT UPPER LIMB patients cx result noted the new cx change the complete dynamics as the cx is showing mrsa plan will restart vanco please order mri of the hand now to see if the infection is extending to the bone depending on the mri result we will plan how long to give abc and what rest continue current mgmt
[2017-06-10] MEDS: VANCOMYCIN 1,250 MG in DEXTROSE 5%-WATER - 250 ML IVPB SCH (17:51)
[2017-06-10] MEDS ORDERED: PT OWN MED DRAWER 7, Y5N ONE (21:21)
[2017-06-10] MEDS: MYCOPHENOLATE SODIUM 360 MG TABLET.DR PO SCH (21:26)
[2017-06-10] MEDS ORDERED: TACROLIMUS ANHYDROUS 1 MG CAPSULE (NF) PO SCH (22:00)
[2017-06-11] MEDS: PIPERACILLIN/TAZOB 2.25 GM 2.25 GM in DEXTROSE 5%-WATER - 50 ML IVPB SCH ×4 (01:25→17:24)
[2017-06-11] MEDS: HEPARIN NA (PORCINE) 5,000 UNITS/ML 1ML VIAL SQ SCH ×3 (05:54→21:02)
[2017-06-11 09:09] LABS: BASOPHIL 0.3 % (0-2.0); EOSINOPHIL 6.6 % (0-4.5); MCH 28.8 pg (25.7-33.7); MCHC 32.4 g/dl (32.0-35.9); NEUTROPHILS 72.5 % (42.8-82.8); PLATELET COUNT 202 K/MM3 (134-434); RDW 13.5 % (11.9-15.9); WHITE BLOOD COUNT 7.3 K/mm3 (4.0-10.0)
[2017-06-11 09:43] LABS: ALBUMIN 2.9 g/dl (3.4-5.0); ALK PHOS 60 U/L (45-117); ANION GAP 9 (8-16); BILIRUBIN,TOTAL 0.4 mg/dL (0.2-1.0); CALCIUM 8.4 mg/dL (8.5-10.1); CO2 24 mmol/L (21-32); CREATININE 1.8 mg/dL (0.7-1.3); GLUCOSE,RANDOM 72 mg/dL (74-106); MAGNESIUM 1.9 mg/dL (1.8-2.4); PHOSPHOROUS 2.8 mg/dL (2.5-4.9); SGOT/AST 6 U/L (15-37); SGPT/ALT 13 U/L (12-78); TOT PROT 5.4 g/dl (6.4-8.2)
[2017-06-11] MEDS ORDERED: PIPERACILLIN/TAZOBACTAM 2.25 GM VIAL IVPB ONE (10:28)
[2017-06-11] MEDS ORDERED: DEXTROSE 5%-WATER - 50 ML IVPB ONE (10:29)
[2017-06-11] MEDS: CALCITRIOL 0.25 MCG CAPSULE (FP) PO SCH (10:40)
[2017-06-11] MEDS: PANTOPRAZOLE 40 MG TABLET (FP) PO SCH (10:41)
[2017-06-11] MEDS: ASPIRIN 81 MG CHEWABLE TABLETS PO SCH (10:41)
[2017-06-11] MEDS: METOPROLOL TARTRATE 50 MG TABLET (FP) PO SCH ×2 (10:41→21:01)
[2017-06-11] MEDS: SODIUM BICARBONATE 650 MG TABLET PO SCH ×2 (10:41→21:01)
[2017-06-11] MEDS: predniSONE 5 MG TABLET (UD) PO SCH (10:41)
[2017-06-11] MEDS: MYCOPHENOLATE SODIUM 360 MG TABLET.DR PO SCH ×3 (10:42→21:33)
[2017-06-11] MEDS: NIFEdipine E.R 60 MG TABLET (UD) PO SCH (10:42)
[2017-06-11] MEDS: CINACALCET HCL 30 MG TAB (FP) PO SCH (10:43)
[2017-06-11] MEDS: TACROLIMUS ANHYDROUS 1 MG CAPSULE (NF) PO SCH (10:44)
[2017-06-11] MEDS: BUDESONIDE/FORMETEROL FUMARATE 80/4.5 mcg INHALER IH SCH ×2 (10:45→21:05)
--- NOTE | 2017-06-11 13:39 | PN ---
Progress Note, Physician History of Present Illness: patient has pulled out his iv line no iv access at this moment patient going for mri of the hand - Current Medication List Current Medications: Active Medications Albuterol Sulfate (Ventolin Hfa Inhaler -) 1 puff IH Q12H PRN PRN Reason: COUGH Aspirin (Asa -) 81 mg PO DAILY [facility] Last Admin: 06/11/17 10:41 Dose: 81 mg Budesonide/Formoterol Fumarate (Symbicort 80/4.5mcg -) 2 puff IH BID [facility] Last Admin: 06/11/17 10:45 Dose: 2 puff Calcitriol (Rocaltrol -) 0.5 mcg PO DAILY [facility] Last Admin: 06/11/17 10:40 Dose: 0.5 mcg Cinacalcet (Sensipar -) 60 mg PO DAILY [facility] Last Admin: 06/11/17 10:43 Dose: 60 mg Ergocalciferol (Drisdol -) 50,000 unit PO Q7D [facility] Last Admin: 06/09/17 09:45 Dose: 50,000 unit Heparin Sodium (Porcine) (Heparin -) 5,000 unit SQ TID [facility] Last Admin: 06/11/17 05:54 Dose: Not Given Piperacillin Sod/Tazobactam (Sod 2.25 gm/ Dextrose) 50 mls @ 100 mls/hr IVPB Q8H-IV [facility] PRN Reason: Protocol Last Admin: 06/11/17 10:40 Dose: 100 mls/hr Sodium Chloride (Normal Saline -) 1,000 mls @ 75 mls/hr IV ASDIR [facility] Last Admin: 06/10/17 12:34 Dose: 75 mls/hr Vancomycin HCl 1,250 mg/ (Dextrose) 250 mls @ 250 mls/hr IVPB DAILY [facility] PRN Reason: Protocol Last Admin: 06/10/17 17:51 Dose: 250 mls/hr Metoprolol Tartrate (Lopressor -) 50 mg PO BID [facility] Last Admin: 06/11/17 10:41 Dose: 50 mg Mycophenolate Sodium (Mycophenolic Acid) 720 mg PO DAILY [facility] Last Admin: 06/11/17 10:42 Dose: 720 mg Mycophenolate Sodium (Mycophenolic Acid) 360 mg PO DAILY@2200 [facility] Last Admin: 06/10/17 21:26 Dose: 360 mg Nifedipine (Procardia Xl -) 60 mg PO DAILY [facility] Last Admin: 06/11/17 10:42 Dose: 60 mg Pantoprazole Sodium (Protonix -) 40 mg PO DAILY [facility] Last Admin: 06/11/17 10:41 Dose: 40 mg Prednisone (Deltasone -) 5 mg PO DAILY [facility] Last Admin: 06/11/17 10:41 Dose: 5 mg Sodium Bicarbonate (Sodium Bicarbonate -) 650 mg PO BID [facility] Last Admin: 06/11/17 10:41 Dose: 650 mg Tacrolimus (Prograf (Non-Formulary)) 4 mg PO DAILY [facility] Last Admin: 06/11/17 10:44 Dose: 4 mg Tacrolimus (Prograf (Non-Formulary)) 3 mg PO HS [facility] Last Admin: 06/10/17 21:27 Dose: 3 mg - Objective Vital Signs: Vital Signs Temperature 98.5 F 06/11/17 08:41 Pulse Rate 75 06/11/17 08:41 Respiratory Rate 20 06/11/17 08:41 Blood Pressure 136/70 06/11/17 08:41 O2 Sat by Pulse Oximetry (%) 96 06/11/17 09:00 Constitutional: Yes: No Distress, Calm, Obese Cardiovascular: Yes: Regular Rate and Rhythm Respiratory: Yes: Regular, CTA Bilaterally Gastrointestinal: Yes: Normal Bowel Sounds, Soft Musculoskeletal: Yes: Other Extremities: Yes: Other Neurological: Yes: Alert, Oriented Psychiatric: Yes: Alert Labs: CBC, BMP 06/11/17 08:00 06/11/17 08:00 Assessment/Plan - Problems (1) Cellulitis of hand Code(s): L03.119 - CELLULITIS OF UNSPECIFIED PART OF LIMB (2) Immunocompromised patient Code(s): D84.9 - IMMUNODEFICIENCY, UNSPECIFIED (3) Renal transplant recipient Code(s): Z94.0 - KIDNEY TRANSPLANT STATUS (4) Cellulitis of hand, right Code(s): L03.113 - CELLULITIS OF RIGHT UPPER LIMB patients cx result noted the new cx change the complete dynamics as the cx is showing mrsa plan no access temporarily will start patient on clinda patient needs iv once mri is done depending on that result we will decide abx
[2017-06-11] MEDS: SODIUM CHLORIDE 1,000 ML IV SCH (13:48)
[2017-06-11] MEDS: VANCOMYCIN 1,250 MG in DEXTROSE 5%-WATER - 250 ML IVPB SCH (13:48)
--- NOTE | 2017-06-11 14:55 | PN ---
Progress Note (short form) - Note Progress Note: Renal Follow up for ESRD s/p Renal Transplant Pt seen and examined at the bedside no acute complaints finger in dressing no pain, fever, chills Vital Signs Temperature 98.5 F 06/11/17 08:41 Pulse Rate 75 06/11/17 08:41 Respiratory Rate 20 06/11/17 08:41 Blood Pressure 136/70 06/11/17 08:41 O2 Sat by Pulse Oximetry (%) 96 06/11/17 09:00 Intake & Output 06/08/17 06/09/17 06/10/17 06/11/17 23:59 23:59 23:59 23:59 Intake Total 1100 2550 3040 1000 Output Total 902 1802 400 Balance 918 107 4554 600 Gen: NAD CVS: RRR, No M/R Lung: CTA Abd: soft NT/ND Ext: b/l LE edema, L>R CBC, BMP 06/11/17 08:00 06/11/17 08:00 Current Medications Albuterol Sulfate (Ventolin Hfa Inhaler -) 1 puff IH Q12H PRN PRN Reason: COUGH Aspirin (Asa -) 81 mg PO DAILY [facility] Last Admin: 06/11/17 10:41 Dose: 81 mg Budesonide/Formoterol Fumarate (Symbicort 80/4.5mcg -) 2 puff IH BID [facility] Last Admin: 06/11/17 10:45 Dose: 2 puff Calcitriol (Rocaltrol -) 0.5 mcg PO DAILY [facility] Last Admin: 06/11/17 10:40 Dose: 0.5 mcg Cinacalcet (Sensipar -) 60 mg PO DAILY [facility] Last Admin: 06/11/17 10:43 Dose: 60 mg Clindamycin HCl (Cleocin -) 300 mg PO Q6HPO [facility] Ergocalciferol (Drisdol -) 50,000 unit PO Q7D [facility] Last Admin: 06/09/17 09:45 Dose: 50,000 unit Heparin Sodium (Porcine) (Heparin -) 5,000 unit SQ TID [facility] Last Admin: 06/11/17 13:54 Dose: 5,000 unit Piperacillin Sod/Tazobactam (Sod 2.25 gm/ Dextrose) 50 mls @ 100 mls/hr IVPB Q8H-IV [facility] PRN Reason: Protocol Last Admin: 06/11/17 13:57 Dose: Not Given Sodium Chloride (Normal Saline -) 1,000 mls @ 75 mls/hr IV ASDIR [facility] Last Admin: 06/11/17 13:48 Dose: Not Given Vancomycin HCl 1,250 mg/ (Dextrose) 250 mls @ 250 mls/hr IVPB DAILY [facility] PRN Reason: Protocol Last Admin: 06/11/17 13:48 Dose: Not Given Metoprolol Tartrate (Lopressor -) 50 mg PO BID [facility] Last Admin: 06/11/17 10:41 Dose: 50 mg Mycophenolate Sodium (Mycophenolic Acid) 720 mg PO DAILY [facility] Last Admin: 06/11/17 10:42 Dose: 720 mg Mycophenolate Sodium (Mycophenolic Acid) 360 mg PO DAILY@2200 [facility] Last Admin: 06/10/17 21:26 Dose: 360 mg Nifedipine (Procardia Xl -) 60 mg PO DAILY [facility] Last Admin: 06/11/17 10:42 Dose: 60 mg Pantoprazole Sodium (Protonix -) 40 mg PO DAILY [facility] Last Admin: 06/11/17 10:41 Dose: 40 mg Prednisone (Deltasone -) 5 mg PO DAILY [facility] Last Admin: 06/11/17 10:41 Dose: 5 mg Sodium Bicarbonate (Sodium Bicarbonate -) 650 mg PO BID [facility] Last Admin: 06/11/17 10:41 Dose: 650 mg Tacrolimus (Prograf (Non-Formulary)) 4 mg PO DAILY [facility] Last Admin: 06/11/17 10:44 Dose: 4 mg Tacrolimus (Prograf (Non-Formulary)) 4 mg PO [facility] a/p 42 year old Gentleman with PMhx of ESRD s/p Renal Transplant ~5 years ago ( follow at [facility]), Hypertension, Secondary Hyperparathyrodisim who presented with a wound on his finger. #ESRD s/p Renal Transplant baseline Cr is 1.8-2 as per [facility] Continue Myfortic 720mg in AM, 360mg in PM Tacrolimus changed to 4mg BID (Tacrolimus level was 2.5 which is on the low side ) Repeat level in AM #Wound on finger wound cultures noted Abx as per ID awaiting MRI to r/o osteomylitis #Le edema MRI of LE suspicious for cellulitis ? clinically appears like lymphedema no tenderness or warmth on examination Thank you Robert Linares DO
[2017-06-11] MEDS: CLINDAMYCIN HCL 150 MG CAPSULE (FP) PO SCH ×2 (17:23→23:11)
[2017-06-11] MEDS ORDERED: PICC LINE 8 ML FLUSH PROTOCOL IVPUSH PRN (18:25)
--- NOTE | 2017-06-11 19:21 | PN ---
Physical Exam: SUBJECTIVE: Patient seen and examined at bedside. OBJECTIVE: Vital Signs Period Temp Pulse Resp BP Sys/Granados Pulse Ox Last 24 Hr 97.7 F-98.5 F 71-75 20-20 130-156/70-86 96-98 GENERAL: The patient is awake, alert, and fully oriented, in no acute distress. HEAD: Normal with no signs of trauma. EYES: PERRL, extraocular movements intact, sclera anicteric, conjunctiva clear. No ptosis. LUNGS: Breath sounds equal, clear to auscultation bilaterally, no wheezes, no crackles, no accessory muscle use. HEART: Regular rate and rhythm, S1, S2 without murmur, rub or gallop. ABDOMEN: Soft, nontender, nondistended, normoactive bowel sounds, no guarding, no rebound UPPER RIGHT EXTREMITY: swelling from fingertips to elbow improved, erythema of forearm resolved; fifth digit right hand wound is open with pus visible LOWER LEFT EXTREMITY: lymphedema improved; erythema resolved; new excoriations on anterior tibialis NEUROLOGICAL: Cranial nerves II through XII grossly intact. Normal speech, gait not observed. Laboratory Results - last 24 hr 06/09/17 06/11/17 06/11/17 07:30 08:00 08:00 WBC 7.3 D RBC 4.04 Hgb 11.6 L D Hct 35.9 D MCV 89.0 MCH 28.8 MCHC 32.4 RDW 13.5 Plt Count 202 MPV 8.0 Neutrophils % 72.5 Lymphocytes % 6.9 L D Monocytes % 13.7 H Eosinophils % 6.6 H Basophils % 0.3 Sodium 142 Potassium 4.2 Chloride 109 H Carbon Dioxide 24 Anion Gap 9 BUN 19 H D Creatinine 1.8 H Creat Clearance w eGFR 41.19 Random Glucose 72 L Calcium 8.4 L Phosphorus 2.8 Magnesium 1.9 Total Bilirubin 0.4 AST 6 L ALT 13 Alkaline Phosphatase 60 D Total Protein 5.4 L Albumin 2.9 L Tacrolimus 2.7 Active Medications Generic Name Dose Route Start Last Admin Trade Name Freq PRN Reason Stop Dose Admin Albuterol Sulfate 1 puff 06/06/17 18:51 Ventolin Hfa Inhaler - IH Q12H PRN COUGH Aspirin 81 mg 06/07/17 10:00 06/11/17 10:41 Asa - PO 81 mg DAILY SHAKEEL Administration Budesonide/Formoterol Fumarate 2 puff 06/06/17 22:00 06/11/17 10:45 Symbicort 80/4.5mcg - IH 2 puff BID SHAKEEL Administration Calcitriol 0.5 mcg 06/07/17 10:00 06/11/17 10:40 Rocaltrol - PO 0.5 mcg DAILY SHAKEEL Administration Cinacalcet 60 mg 06/07/17 10:00 06/11/17 10:43 Sensipar - PO 60 mg DAILY SHAKEEL Administration Clindamycin HCl 300 mg 06/11/17 18:00 06/11/17 17:23 Cleocin - PO 300 mg Q6HPO SHAKEEL Administration Ergocalciferol 50,000 unit 06/09/17 10:00 06/09/17 09:45 Drisdol - PO 50,000 unit Q7D SHAKEEL Administration Heparin Sodium (Porcine) 5,000 unit 06/06/17 22:00 06/11/17 13:54 Heparin - SQ 5,000 unit TID SHAKEEL Administration IV Flush 8 ml 06/11/17 18:25 Picc Line Flush IVPUSH PRN PRN Protocol Piperacillin Sod/Tazobactam 50 mls @ 100 mls/hr 06/06/17 18:45 06/11/17 17:24 Sod 2.25 gm/ Dextrose IVPB Not Given Q8H-IV SHAKEEL Protocol Sodium Chloride 1,000 mls @ 75 mls/hr 06/09/17 11:30 06/11/17 13:48 Normal Saline - IV Not Given ASDIR SHAEKEL Vancomycin HCl 1,250 mg/ 250 mls @ 250 mls/hr 06/10/17 14:45 06/11/17 13:48 Dextrose IVPB Not Given DAILY SHAKEEL Protocol Metoprolol Tartrate 50 mg 06/06/17 22:00 06/11/17 10:41 Lopressor - PO 50 mg BID SHAKEEL Administration Mycophenolate Sodium 720 mg 06/11/17 10:00 06/11/17 10:42 Mycophenolic Acid PO 720 mg DAILY SHAKEEL Administration Mycophenolate Sodium 360 mg 06/10/17 22:00 06/10/17 21:26 Mycophenolic Acid PO 360 mg DAILY@2200 SHAKEEL Administration Nifedipine 60 mg 06/07/17 10:00 06/11/17 10:42 Procardia Xl - PO 60 mg DAILY SHAKEEL Administration Pantoprazole Sodium 40 mg 06/07/17 10:00 06/11/17 10:41 Protonix - PO 40 mg DAILY SHAKEEL Administration Prednisone 5 mg 06/07/17 10:00 06/11/17 10:41 Deltasone - PO 5 mg DAILY SHAKEEL Administration Sodium Bicarbonate 650 mg 06/06/17 22:00 06/11/17 10:41 Sodium Bicarbonate - PO 650 mg BID SHAKEEL Administration Tacrolimus 4 mg 06/11/17 10:00 06/11/17 10:44 Prograf (Non-Formulary) PO 4 mg DAILY SHAKEEL Administration Tacrolimus 4 mg 06/11/17 22:00 Prograf (Non-Formulary) PO HS SHAKEEL Microbiology 06/08/17 12:00 Abscess Gram Stain - Final 06/08/17 12:00 Abscess Wound Culture - Final S Aureus 06/08/17 12:00 Finger - Right Thumb Gram Stain - Final 06/08/17 12:00 Finger - Right Thumb Wound Culture - Final S Aureus 06/06/17 13:06 Blood - Peripheral Venous Blood Culture - Final NO GROWTH AFTER 5 DAYS INCUBATION 06/06/17 13:06 Blood - Peripheral Venous Blood Culture - Final NO GROWTH AFTER 5 DAYS INCUBATION 06/06/17 16:13 Toe - Left Hallux Gram Stain - Final 06/06/17 16:13 Toe - Left Hallux Wound Culture - Final Klebsiella Pneumoniae Enterobacter Cloacae Enterobacter Cloacae#2 Enterococcus Casseliflavus Diphtheroid/Corynebacterium Streptococcus Viridans Proteus Mirabilis 06/07/17 18:00 Nares - Mrsa Screen - Right MRSA Screen - Final NO MRSA ISOLATED 06/07/17 18:00 Nares - Mrsa Screen - Left MRSA Screen - Final NO MRSA ISOLATED 06/06/17 13:06 Urine - Urine Clean Catch Urine Culture - Final NO GROWTH OBTAINED ASSESSMENT/PLAN 42 year-old male with a PMH of CVA and intracranial hemorrhage s/p craniectomy ( 2000) and residual left-sided weakness, chronic LLE lymphedema, chronic left great toe wound, ESRD s/p renal transplant (2010 [facility]). Admitted for right 5th digit abscess. MRSA cellulitis of right upper extremity MRSA Abscess of right 5th digit --06/11 MRI right hand: (1) marked subq edema over the dorsal aspect especially ulnarly where there is fluid tracking; (2) open wound of the dorsal aspect of the mid-proximal phalanx of the small finger with fluid tracking to the extensor tendon and possibly the dorsal cortex of the proximal phalanx; (3) no evidence of osteo --lost peripheral IV access today, treated with clinda PO and augmentin --will need PICC line for at least an additional 7 days of IV therapy --f/u with Dr. Whitlock re: MRI results Cellulitis of left lower extremity Chronic left great toe wound --arterial and venous dopplers unremarkable other than soft tissue edema --MRI not suspicious for osteo of right foot --antibiotics as above Skin excoriations left lower extremity --patient scratching his leg, long streaks of excoriated epidermis --mupirocin TID Chronic left lower extremity lymphedema --has had full workup at [facility], told chronic condition h/o CVA s/p craniectomy with residual left-sided weakness --no acute issues --continue ASA ESRD s/p right renal transplant Chronic allograft rejection --Cr baseline 1.8-->2.0 per renal --continue mycophenelate, tacrolimus, prednisone F/E/N Fluids: PO intake adequate Electrolytes: replete as indicated Nutrition: sodium controlled, low potassium DVT prophylaxis: subq heparin Disposition: need Dr. Whitlock's input re: MRI results; plan is for PICC line and outpatient IV therapy. Full code. Visit type - Emergency Visit Emergency Visit: Yes ED Registration Date: 06/06/17 Care time: The patient presented to the Emergency Department on the above date and was hospitalized for further evaluation of their emergent condition. - New Patient This patient is new to me today: No - Critical Care Critical Care patient: No
[2017-06-11] MEDS ORDERED: PT OWN MED DRAWER 7, Y5N ONE (20:40)
[2017-06-11] MEDS: MUPIROCIN 2% TOPICAL OINTMENT 22 GM TUBE TP SCH (21:33)
[2017-06-11] MEDS ORDERED: TACROLIMUS ANHYDROUS 1 MG CAPSULE (NF) PO SCH (22:00)
[2017-06-12] MEDS: PIPERACILLIN/TAZOB 2.25 GM 2.25 GM in DEXTROSE 5%-WATER - 50 ML IVPB SCH ×3 (02:33→17:56)
[2017-06-12] MEDS: CLINDAMYCIN HCL 150 MG CAPSULE (FP) PO SCH ×3 (05:56→17:56)
[2017-06-12] MEDS: MUPIROCIN 2% TOPICAL OINTMENT 22 GM TUBE TP SCH ×2 (06:06→13:48)
[2017-06-12] MEDS: HEPARIN NA (PORCINE) 5,000 UNITS/ML 1ML VIAL SQ SCH ×2 (06:07→13:47)
[2017-06-12] MEDS ORDERED: PT OWN MED DRAWER 7, Y5N ONE (11:06)
[2017-06-12] MEDS ORDERED: DEXTROSE 5%-WATER - 50 ML IVPB ONE ×2 (11:06→17:53)
[2017-06-12] MEDS ORDERED: PIPERACILLIN/TAZOBACTAM 2.25 GM VIAL IVPB ONE ×2 (11:06→17:52)
[2017-06-12] MEDS: SODIUM BICARBONATE 650 MG TABLET PO SCH (11:08)
[2017-06-12] MEDS: ASPIRIN 81 MG CHEWABLE TABLETS PO SCH (11:08)
[2017-06-12] MEDS: METOPROLOL TARTRATE 50 MG TABLET (FP) PO SCH (11:08)
[2017-06-12] MEDS: PANTOPRAZOLE 40 MG TABLET (FP) PO SCH (11:08)
[2017-06-12] MEDS: MYCOPHENOLATE SODIUM 360 MG TABLET.DR PO SCH (11:09)
[2017-06-12] MEDS: CALCITRIOL 0.25 MCG CAPSULE (FP) PO SCH (11:09)
[2017-06-12] MEDS: predniSONE 5 MG TABLET (UD) PO SCH (11:09)
[2017-06-12] MEDS: NIFEdipine E.R 60 MG TABLET (UD) PO SCH (11:10)
[2017-06-12] MEDS: TACROLIMUS ANHYDROUS 1 MG CAPSULE (NF) PO SCH (11:10)
[2017-06-12] MEDS: CINACALCET HCL 30 MG TAB (FP) PO SCH (11:11)
[2017-06-12] MEDS: BUDESONIDE/FORMETEROL FUMARATE 80/4.5 mcg INHALER IH SCH (11:16)
[2017-06-12] MEDS: VANCOMYCIN 1,250 MG in DEXTROSE 5%-WATER - 250 ML IVPB SCH (12:00)
--- NOTE | 2017-06-12 13:08 | PN ---
Progress Note, Physician History of Present Illness: patient doing well no complaints has a line in place - Current Medication List Current Medications: Active Medications Albuterol Sulfate (Ventolin Hfa Inhaler -) 1 puff IH Q12H PRN PRN Reason: COUGH Aspirin (Asa -) 81 mg PO DAILY [facility] Last Admin: 06/12/17 11:08 Dose: 81 mg Budesonide/Formoterol Fumarate (Symbicort 80/4.5mcg -) 2 puff IH BID [facility] Last Admin: 06/12/17 11:16 Dose: 2 puff Calcitriol (Rocaltrol -) 0.5 mcg PO DAILY [facility] Last Admin: 06/12/17 11:09 Dose: 0.5 mcg Cinacalcet (Sensipar -) 60 mg PO DAILY [facility] Last Admin: 06/12/17 11:11 Dose: 60 mg Clindamycin HCl (Cleocin -) 300 mg PO Q6HPO [facility] Last Admin: 06/12/17 11:09 Dose: 300 mg Ergocalciferol (Drisdol -) 50,000 unit PO Q7D [facility] Last Admin: 06/09/17 09:45 Dose: 50,000 unit Heparin Sodium (Porcine) (Heparin -) 5,000 unit SQ TID [facility] Last Admin: 06/12/17 06:07 Dose: 5,000 unit IV Flush (Picc Line Flush) 8 ml IVPUSH PRN PRN PRN Reason: Protocol Piperacillin Sod/Tazobactam (Sod 2.25 gm/ Dextrose) 50 mls @ 100 mls/hr IVPB Q8H-IV SHAKEEL PRN Reason: Protocol Last Admin: 06/12/17 11:11 Dose: 100 mls/hr Sodium Chloride (Normal Saline -) 1,000 mls @ 75 mls/hr IV ASDIR [facility] Last Admin: 06/11/17 13:48 Dose: Not Given Metoprolol Tartrate (Lopressor -) 50 mg PO BID [facility] Last Admin: 06/12/17 11:08 Dose: 50 mg Mupirocin (Bactroban 2% Ointment -) 1 applic TP TID [facility] Last Admin: 06/12/17 06:06 Dose: 1 applic Mycophenolate Sodium (Mycophenolic Acid) 720 mg PO DAILY [facility] Last Admin: 06/12/17 11:09 Dose: 720 mg Mycophenolate Sodium (Mycophenolic Acid) 360 mg PO DAILY@2200 [facility] Last Admin: 06/11/17 21:33 Dose: 360 mg Nifedipine (Procardia Xl -) 60 mg PO DAILY [facility] Last Admin: 06/12/17 11:10 Dose: 60 mg Pantoprazole Sodium (Protonix -) 40 mg PO DAILY [facility] Last Admin: 06/12/17 11:08 Dose: 40 mg Prednisone (Deltasone -) 5 mg PO DAILY [facility] Last Admin: 06/12/17 11:09 Dose: 5 mg Sodium Bicarbonate (Sodium Bicarbonate -) 650 mg PO BID [facility] Last Admin: 06/12/17 11:08 Dose: 650 mg Tacrolimus (Prograf (Non-Formulary)) 4 mg PO DAILY [facility] Last Admin: 06/12/17 11:10 Dose: 4 mg Tacrolimus (Prograf (Non-Formulary)) 4 mg PO HS [facility] Last Admin: 06/11/17 21:33 Dose: 4 mg - Objective Vital Signs: Vital Signs Temperature 97.6 F 06/12/17 06:00 Pulse Rate 68 06/12/17 06:00 Respiratory Rate 20 06/12/17 09:00 Blood Pressure 146/75 06/12/17 06:00 O2 Sat by Pulse Oximetry (%) 96 06/12/17 09:00 Constitutional: Yes: No Distress, Calm, Other (obese) Cardiovascular: Yes: Regular Rate and Rhythm Respiratory: Yes: Regular, CTA Bilaterally Gastrointestinal: Yes: Normal Bowel Sounds, Soft Musculoskeletal: Yes: Other Extremities: Yes: Other Neurological: Yes: Alert, Oriented Psychiatric: Yes: Alert, Oriented Labs: CBC, BMP 06/11/17 08:00 06/11/17 08:00 - ....Imaging MRI: Report Reviewed, Image Reviewed Assessment/Plan - Problems (1) Cellulitis of hand Code(s): L03.119 - CELLULITIS OF UNSPECIFIED PART OF LIMB (2) Immunocompromised patient Code(s): D84.9 - IMMUNODEFICIENCY, UNSPECIFIED (3) Renal transplant recipient Code(s): Z94.0 - KIDNEY TRANSPLANT STATUS (4) Cellulitis of hand, right Code(s): L03.113 - CELLULITIS OF RIGHT UPPER LIMB patients cx result noted the new cx change the complete dynamics as the cx is showing mrsa plan all cx result noted mri noted continue clinda 300 mg every 6 hourly for another 7 days zosyn continue current mgmt for another 4 days-5 days
[2017-06-12 13:44] VITALS: BP 147/89; PULSE 69; TEMP 97.7
--- NOTE | 2017-06-12 15:46 | PN ---
Progress Note (short form) - Note Progress Note: Renal Follow up for ESRD s/p Renal Transplant Pt seen and examined at the bedside no acute complaints s/p tunneled central line insertion no fevers, chills, SOB, Abd pain Vital Signs Temperature 97.7 F 06/12/17 13:42 Pulse Rate 69 06/12/17 13:42 Respiratory Rate 20 06/12/17 13:42 Blood Pressure 147/89 06/12/17 13:42 O2 Sat by Pulse Oximetry (%) 96 06/12/17 09:00 Intake & Output 06/09/17 06/10/17 06/11/17 06/12/17 23:59 23:59 23:59 23:59 Intake Total 2550 3040 1000 520 Output Total 1802 1200 300 Balance 748 3040 -200 220 Gen: NAD CVS: RRR, No M/R Lung: CTA Abd: soft NT/ND Ext: b/l LE edema, L>R CBC, BMP 06/11/17 08:00 06/11/17 08:00 Current Medications Albuterol Sulfate (Ventolin Hfa Inhaler -) 1 puff IH Q12H PRN PRN Reason: COUGH Aspirin (Asa -) 81 mg PO DAILY [facility] Last Admin: 06/12/17 11:08 Dose: 81 mg Budesonide/Formoterol Fumarate (Symbicort 80/4.5mcg -) 2 puff IH BID [facility] Last Admin: 06/12/17 11:16 Dose: 2 puff Calcitriol (Rocaltrol -) 0.5 mcg PO DAILY [facility] Last Admin: 06/12/17 11:09 Dose: 0.5 mcg Cinacalcet (Sensipar -) 60 mg PO DAILY [facility] Last Admin: 06/12/17 11:11 Dose: 60 mg Clindamycin HCl (Cleocin -) 300 mg PO Q6HPO [facility] Last Admin: 06/12/17 11:09 Dose: 300 mg Ergocalciferol (Drisdol -) 50,000 unit PO Q7D [facility] Last Admin: 06/09/17 09:45 Dose: 50,000 unit Heparin Sodium (Porcine) (Heparin -) 5,000 unit SQ TID [facility] Last Admin: 06/12/17 13:47 Dose: 5,000 unit IV Flush (Picc Line Flush) 8 ml IVPUSH PRN PRN PRN Reason: Protocol Piperacillin Sod/Tazobactam (Sod 2.25 gm/ Dextrose) 50 mls @ 100 mls/hr IVPB Q8H-IV SHAKEEL PRN Reason: Protocol Last Admin: 06/12/17 11:11 Dose: 100 mls/hr Sodium Chloride (Normal Saline -) 1,000 mls @ 75 mls/hr IV ASDIR [facility] Last Admin: 06/11/17 13:48 Dose: Not Given Metoprolol Tartrate (Lopressor -) 50 mg PO BID [facility] Last Admin: 06/12/17 11:08 Dose: 50 mg Mupirocin (Bactroban 2% Ointment -) 1 applic TP TID [facility] Last Admin: 06/12/17 13:48 Dose: 1 applic Mycophenolate Sodium (Mycophenolic Acid) 720 mg PO DAILY [facility] Last Admin: 06/12/17 11:09 Dose: 720 mg Mycophenolate Sodium (Mycophenolic Acid) 360 mg PO DAILY@2200 [facility] Last Admin: 06/11/17 21:33 Dose: 360 mg Nifedipine (Procardia Xl -) 60 mg PO DAILY [facility] Last Admin: 06/12/17 11:10 Dose: 60 mg Pantoprazole Sodium (Protonix -) 40 mg PO DAILY [facility] Last Admin: 06/12/17 11:08 Dose: 40 mg Prednisone (Deltasone -) 5 mg PO DAILY [facility] Last Admin: 06/12/17 11:09 Dose: 5 mg Sodium Bicarbonate (Sodium Bicarbonate -) 650 mg PO BID [facility] Last Admin: 06/12/17 11:08 Dose: 650 mg Tacrolimus (Prograf (Non-Formulary)) 4 mg PO DAILY [facility] Last Admin: 06/12/17 11:10 Dose: 4 mg Tacrolimus (Prograf (Non-Formulary)) 4 mg PO HS [facility] Last Admin: 06/11/17 21:33 Dose: 4 mg a/p 42 year old Gentleman with PMhx of ESRD s/p Renal Transplant ~5 years ago ( follow at [facility]), Hypertension, Secondary Hyperparathyrodisim who presented with a wound on his finger. #ESRD s/p Renal Transplant Renal function stable at baseline Continue BID Myfortic and Tacrolimus Avoid NSAIDs and other nephrotoxins Trend BUN/cR while inpatient #Wound on finger MRI w/o evidence of osteo continue Abx as per ID n Thank you Robert Linares DO
--- NOTE | 2017-06-12 16:07 | PN ---
Progress Note (short form) - Note Progress Note: Subjective: The patient was seen and examined at the bedside, he would like to go home. Per Dr. Mcdaniel can be discharged with Zosyn x4-5 more days Discussed with case management for safe discharge plan Current Medications Generic Name Dose Route Start Last Admin Trade Name Freq PRN Reason Stop Dose Admin Albuterol Sulfate 1 puff 06/06/17 18:51 Ventolin Hfa Inhaler - IH Q12H PRN COUGH Aspirin 81 mg 06/07/17 10:00 06/12/17 11:08 Asa - PO 81 mg DAILY SHAKEEL Administration Budesonide/Formoterol Fumarate 2 puff 06/06/17 22:00 06/12/17 11:16 Symbicort 80/4.5mcg - IH 2 puff BID SHAKEEL Administration Calcitriol 0.5 mcg 06/07/17 10:00 06/12/17 11:09 Rocaltrol - PO 0.5 mcg DAILY SHAKEEL Administration Cinacalcet 60 mg 06/07/17 10:00 06/12/17 11:11 Sensipar - PO 60 mg DAILY SHAKEEL Administration Clindamycin HCl 300 mg 06/11/17 18:00 06/12/17 11:09 Cleocin - PO 300 mg Q6HPO SHAKEEL Administration Ergocalciferol 50,000 unit 06/09/17 10:00 06/09/17 09:45 Drisdol - PO 50,000 unit Q7D SHAKEEL Administration Heparin Sodium (Porcine) 5,000 unit 06/06/17 22:00 06/12/17 13:47 Heparin - SQ 5,000 unit TID SHAKEEL Administration IV Flush 8 ml 06/11/17 18:25 Picc Line Flush IVPUSH PRN PRN Protocol Piperacillin Sod/Tazobactam 50 mls @ 100 mls/hr 06/06/17 18:45 06/12/17 11:11 Sod 2.25 gm/ Dextrose IVPB 100 mls/hr Q8H-IV SHAKEEL Administration Protocol Sodium Chloride 1,000 mls @ 75 mls/hr 06/09/17 11:30 06/11/17 13:48 Normal Saline - IV Not Given ASDIR SHAKEEL Metoprolol Tartrate 50 mg 06/06/17 22:00 06/12/17 11:08 Lopressor - PO 50 mg BID SHAKEEL Administration Mupirocin 1 applic 06/11/17 22:00 06/12/17 13:48 Bactroban 2% Ointment - TP 1 applic TID SHAKEEL Administration Mycophenolate Sodium 720 mg 06/11/17 10:00 06/12/17 11:09 Mycophenolic Acid PO 720 mg DAILY SHAKEEL Administration Mycophenolate Sodium 360 mg 06/10/17 22:00 06/11/17 21:33 Mycophenolic Acid PO 360 mg DAILY@2200 SHAKEEL Administration Nifedipine 60 mg 06/07/17 10:00 06/12/17 11:10 Procardia Xl - PO 60 mg DAILY SHAKEEL Administration Pantoprazole Sodium 40 mg 06/07/17 10:00 06/12/17 11:08 Protonix - PO 40 mg DAILY SHAKEEL Administration Prednisone 5 mg 06/07/17 10:00 06/12/17 11:09 Deltasone - PO 5 mg DAILY SHAKEEL Administration Sodium Bicarbonate 650 mg 06/06/17 22:00 06/12/17 11:08 Sodium Bicarbonate - PO 650 mg BID SHAKEEL Administration Tacrolimus 4 mg 06/11/17 10:00 06/12/17 11:10 Prograf (Non-Formulary) PO 4 mg DAILY SHAKEEL Administration Tacrolimus 4 mg 06/11/17 22:00 06/11/17 21:33 Prograf (Non-Formulary) PO 4 mg HS SHAKEEL Administration Objective: Vital Signs Period Temp Pulse Resp BP Sys/Granados Pulse Ox Last 24 Hr 97.6 F-98.5 F 68-69 20-20 146-162/75-89 96-96 Physical Exam: Patient refused CBCD WBC 7.3 K/mm3 (4.0-10.0) D 06/11/17 08:00 RBC 4.04 M/mm3 (4.00-5.60) 06/11/17 08:00 Hgb 11.6 GM/dL (11.7-16.9) L D 06/11/17 08:00 Hct 35.9 % (35.4-49) D 06/11/17 08:00 MCV 89.0 fl (80-96) 06/11/17 08:00 MCHC 32.4 g/dl (32.0-35.9) 06/11/17 08:00 RDW 13.5 % (11.9-15.9) 06/11/17 08:00 Plt Count 202 K/MM3 (134-434) 06/11/17 08:00 MPV 8.0 fl (7.5-11.1) 06/11/17 08:00 CMP Sodium 142 mmol/L (136-145) 06/11/17 08:00 Potassium 4.2 mmol/L (3.5-5.1) 06/11/17 08:00 Chloride 109 mmol/L (98-107) H 06/11/17 08:00 Carbon Dioxide 24 mmol/L (21-32) 06/11/17 08:00 Anion Gap 9 (8-16) 06/11/17 08:00 BUN 19 mg/dL (7-18) H D 06/11/17 08:00 Creatinine 1.8 mg/dL (0.7-1.3) H 06/11/17 08:00 Creat Clearance w eGFR 41.19 (>60) 06/11/17 08:00 Random Glucose 72 mg/dL (74-106) L 06/11/17 08:00 Calcium 8.4 mg/dL (8.5-10.1) L 06/11/17 08:00 Total Bilirubin 0.4 mg/dL (0.2-1.0) 06/11/17 08:00 AST 6 U/L (15-37) L 06/11/17 08:00 ALT 13 U/L (12-78) 06/11/17 08:00 Alkaline Phosphatase 60 U/L (45-117) D 06/11/17 08:00 Total Protein 5.4 g/dl (6.4-8.2) L 06/11/17 08:00 Albumin 2.9 g/dl (3.4-5.0) L 06/11/17 08:00 Microbiology 06/08/17 12:00 Abscess Gram Stain - Final 06/08/17 12:00 Abscess Wound Culture - Final Mr S Aureus 06/08/17 12:00 Finger - Right Thumb Gram Stain - Final 06/08/17 12:00 Finger - Right Thumb Wound Culture - Final Mr S Aureus 06/06/17 13:06 Blood - Peripheral Venous Blood Culture - Final NO GROWTH AFTER 5 DAYS INCUBATION 06/06/17 13:06 Blood - Peripheral Venous Blood Culture - Final NO GROWTH AFTER 5 DAYS INCUBATION 06/06/17 16:13 Toe - Left Hallux Gram Stain - Final 06/06/17 16:13 Toe - Left Hallux Wound Culture - Final Klebsiella Pneumoniae Enterobacter Cloacae Enterobacter Cloacae#2 Enterococcus Casseliflavus Diphtheroid/Corynebacterium Streptococcus Viridans Proteus Mirabilis 06/07/17 18:00 Nares - Mrsa Screen - Right MRSA Screen - Final NO MRSA ISOLATED 06/07/17 18:00 Nares - Mrsa Screen - Left MRSA Screen - Final NO MRSA ISOLATED 06/06/17 13:06 Urine - Urine Clean Catch Urine Culture - Final NO GROWTH OBTAINED Assessment: This is a 42 year old male with PMHx of CVA and intracranial hemorrhage (s/p craniectomy 2000) with left residual weakness, chronic LLE lymphedema, chronic left toe wound, ESRD s/p renal transplant (2010) who presented with right hand 5th digit abscess Plan: 1) ID: MRSA right hand 5th digit - MRI right hand: (1) marked subq edema over the dorsal aspect especially ulnarly where there is fluid tracking; (2) open wound of the dorsal aspect of the mid-proximal phalanx of the small finger with fluid tracking to the extensor tendon and possibly the dorsal cortex of the proximal phalanx; (3) no evidence of osteo - Can be discharged on Clindamycin per ID Cellulitis of left lower extremity - MRI not suspicious for osteo of right foot - Wound culture as above - Will need 4-5 more days of Zosyn - Triple lumen placed - Appreciate ID consult 2) : ESRD s/p transplant - Baseline Cr ~1.8-2 - Continue Mycophenolate 720mg in AM, 360mg in PM - Tacrolimus changed to 4mg BID (Tacrolimus level was 2.5 which is on the low side) - F/u repeat level - Appreciate nephrology consult 3) F/E/N: - Monitor electrolytes - Sodium controlled, low potassium diet 4) Prophylaxis: - Heparin 5,000u sq tid 5) Dispo: - Requires continued inpatient care CODE STATUS: FULL CODE Visit type - Emergency Visit Emergency Visit: Yes ED Registration Date: 06/06/17 Care time: The patient presented to the Emergency Department on the above date and was hospitalized for further evaluation of their emergent condition. - New Patient This patient is new to me today: Yes Date on this admission: 06/12/17 - Critical Care Critical Care patient: No
--- NOTE | 2017-06-12 17:28 | DS ---
Physical Examination Vital Signs: Vital Signs Temperature 97.7 F 06/12/17 13:42 Pulse Rate 69 06/12/17 13:42 Respiratory Rate 20 06/12/17 13:42 Blood Pressure 147/89 06/12/17 13:42 O2 Sat by Pulse Oximetry (%) 96 06/12/17 09:00 Labs: CBC, BMP 06/11/17 08:00 06/11/17 08:00 Discharge Summary Reason For Visit: CELLULITIS RIGHT UPPER EXTREMITY Current Active Problems Cellulitis of arm, right (Acute) Cellulitis of hand (Acute) Cellulitis of hand, right (Acute) Cellulitis of leg (Acute) End stage kidney disease (Acute) Immunocompromised patient (Acute) Renal transplant recipient (Acute) Condition: Improved - Instructions Diet, Activity, Other Instructions: Please return to the ED with new, persistent, or worsening symptoms. Please follow-up with providers as indicated. Please have your BUN/Cr checked within 2 days. Avoid all NSAIDS and anything that is toxic to your kidneys Keep your right hand elevated on 3 pillows at all times. Warm soaks for your right hand every 4 hours followed by dry dressings Referrals: Jadno Rodriguez MD [Staff Physician] - (Please follow-up with Dr. Rodriguez for further management of your hand wound within 3-5 days) Torres Mcdaniel MD [Staff Physician] - 1 Week William Carmona MD [Staff Physician] - (Please follow-up with Dr. Carmona for wound care within 2-3 days.) Robert Linares MD [Staff Physician] - (Please follow-up with nephrology within 1 week. ) Disposition: [facility] FACILITY - Home Medications Comprehensive Discharge Medication List: Ambulatory Orders Aspirin [ASA -] 81 mg PO DAILY 06/06/17 Calcitriol [Rocaltrol] 0.5 mcg PO DAILY 06/06/17 Cholecalciferol (Vitamin D3) [Vitamin D3] 5,000 unit PO WEEKLY 06/06/17 Cinacalcet HCl [Sensipar] 60 mg PO DAILY 06/06/17 Dexlansoprazole [Dexilant] 60 mg PO DAILY 06/06/17 Levalbuterol HCl [Xopenex] 0.31 mg IH BID PRN 06/06/17 Metoprolol Tartrate 50 mg PO BID 06/06/17 Nifedipine [Procardia Xl] 60 mg PO DAILY 06/06/17 Prednisone 5 mg PO DAILY 06/06/17 Salmeterol/Fluticasone [Advair 250Mcg/50Mcg -] 1 inh PO BID 06/06/17 Sodium Bicarbonate - 650 mg PO BID 06/06/17 Clindamycin [Cleocin -] 300 mg PO Q6HPO #28 cap 06/12/17 Mycophenolate Sodium [Mycophenolic Acid] 360 mg PO DAILY@2200 tab 06/12/17 Mycophenolate Sodium [Mycophenolic Acid] 720 mg PO DAILY #0 tab 06/12/17 Piperacillin Sodium/Tazobactam [Zosyn 2.25 Gram Vial] 2.25 gm IV Q8H #15 vial Tacrolimus Anhydrous [Prograf (Non-Formulary)] 4 mg PO DAILY tab 06/12/17 Tacrolimus Anhydrous [Prograf (Non-Formulary)] 4 mg PO HS tab 06/12/17
== END 2017-06-12 19:52 | DRG 603 ==
LOC: JER 11:55 → JERBED 16:16 → J6S 18:40
PROVIDERS: ADMIT Internal Medicine; ATTEND Registered Nurse
PROC: 02HV33Z Insertion of Infusion Device into Superior Vena Cava, Percutaneous Approach (ICD-10-PCS; principal; 2017-06-12)
PROC: B548ZZA Ultrasonography of Superior Vena Cava, Guidance (ICD-10-PCS; 2017-06-12)
DX: L03.113 Cellulitis of right upper limb (principal); Z94.0 Kidney transplant status; I69.354 Hemiplegia and hemiparesis following cerebral infarction affecting left non-dominant side; N17.9 Acute kidney failure, unspecified; T86.11 Kidney transplant rejection; L03.116 Cellulitis of left lower limb; N25.81 Secondary hyperparathyroidism of renal origin; I89.0 Lymphedema, not elsewhere classified; Y83.8 Other surgical procedures as the cause of abnormal reaction of the patient, or of later complication, without mention of misadventure at the time of the procedure; E83.42 Hypomagnesemia; E66.9 Obesity, unspecified; L03.011 Cellulitis of right finger; B95.62 Methicillin resistant Staphylococcus aureus infection as the cause of diseases classified elsewhere
CPT/HCPCS: 36415; 36558; 73218-TC-RT; 73630-TC-LT; 73718-LT; 77001-TC; 80048; 80053; 80061; 80197; 81003; 81015; 82803; 83036; 83605; 83721; 83735; 84100; 85025; 85027; 85651; 86140; 87040; 87070; 87081; 87086; 87186; 87205; 93005; 93010; 93925-TC; 93970-TC; 99282-25; C1751; G0480; J1644; J7517

== ENCOUNTER → 2017-06-19 | Day surgery (SDC) | payer OTHER | END | disposition home or self-care (01) | LOC: JRADIR 12:42 | PROVIDERS: ATTEND Registered Nurse | PROC: 0JPT0XZ Removal of Tunneled Vascular Access Device from Trunk Subcutaneous Tissue and Fascia, Open Approach (ICD-10-PCS; principal; 2017-06-19) | DX: Z45.2 Encounter for adjustment and management of vascular access device (principal) | CPT/HCPCS: 36589 ==

== ENCOUNTER 2021-01-11 08:20 | Emergency (ER) | payer OTHER ==
[2021-01-11 08:31] VITALS: BP 138/80; PULSE 69; TEMP 98.4; BMI 22.5
== END 2021-01-11 09:11 | disposition home or self-care (01) ==
LOC: JERFT 08:20
DX: S63.630A Sprain of interphalangeal joint of right index finger, initial encounter (principal); W22.8XXA Striking against or struck by other objects, initial encounter
CPT/HCPCS: 73130-TC-RT-FY; 73140-TC-RT-FY; 99283-25

== ENCOUNTER 2022-10-06 07:43 | Inpatient (IN) | payer OTHER ==
[2022-10-06] MEDS ORDERED: ACETAMINOPHEN 500 MG TABLET (FP) PO ONE (08:37)
[2022-10-06] MEDS ORDERED: ACETAMINOPHEN 325 MG TABLET (FP) ONE (09:04)
[2022-10-06] MEDS ORDERED: oxyCODONE HCL 5 MG TABLET PO ONE (09:04)
[2022-10-06] MEDS ORDERED: CEFEPIME HCL/D5W 1 GM/50 ML BAG IVPB ONE (09:04)
[2022-10-06] MEDS ORDERED: VANCOMYCIN 1 GM in D5W (PRE-DOCKED) 1,000 MG/250 ML IVPB ONE (09:05)
[2022-10-06] MEDS ORDERED: CLINDAMYCIN 600MG PREMIX IVPB 600 MG/50 ML BAG IVPB ONE ×2 (09:05→09:46)
[2022-10-06] MEDS ORDERED: oxyCODONE HCL 5 MG TABLET ONE (09:06)
[2022-10-06] MEDS ORDERED: VANCOMYCIN/WATER FOR INJ (PEG) 1,000 MG/200 ML BAG IVPB ONE ×2 (09:45→23:34)
[2022-10-06] MEDS ORDERED: CEFEPIME 1 GM/100 ML BAG IVPB ONE ×2 (09:45→22:14)
[2022-10-06 10:40] LABS: BASO % 0.4 % (0-2.0); EOS % 0.3 % (0-4.5); HEMATOCRIT 40.9 % (35.4-49); LYMPH % 3.5 % (8-40); MCH 27.9 pg (25.7-33.7); MCHC 31.7 g/dl (32.0-35.9); MEAN CELL VOLUME 87.9 fl (80-96); MEAN PLT VOLUME 7.4 fl (7.5-11.1); MONO % 12.3 % (3.8-10.2); NEUT % 83.5 % (42.8-82.8); PLATELET COUNT 187 10^3/uL (134-434); RBC 4.65 M/mm3 (4.00-5.60); RDW 13.8 % (11.9-15.9); WHITE BLOOD COUNT 12.1 K/mm3 (4.0-10.0)
[2022-10-06 10:52] LABS: INR 1.14 (0.83-1.09); PROTHROMBIN TIME (PATIENT) 13.1 SEC (9.7-13.0)
[2022-10-06 10:59] LABS: CALCIUM 8.8 mg/dL (8.5-10.1)
[2022-10-06 11:00] LABS: ALBUMIN 3.6 g/dl (3.4-5.0); BLOOD UREA NITROGEN 24.3 mg/dL (7-18)
[2022-10-06 11:03] LABS: CREATININE 1.9 mg/dL (0.55-1.3)
[2022-10-06 11:05] LABS: BILIRUBIN,TOTAL 0.9 mg/dL (0.2-1); TOT PROT 6.7 g/dl (6.4-8.2)
[2022-10-06 11:29] LABS: ERYTHROCYTE SEDIMENTATION RATE 76 mm/hr (0-10)
[2022-10-06] MEDS ORDERED: traMADol HCL 50 MG TABLET PO PRN (13:35)
[2022-10-06] MEDS ORDERED: VANCOMYCIN/WATER FOR INJ (PEG) 1,000 MG/200 ML BAG IVPB SCH ×2 (14:00→23:00)
[2022-10-06] MEDS ORDERED: CEFEPIME 1 GM in DEXTROSE 5%-WATER - 100 ML IVPB SCH (14:00)
[2022-10-06] MEDS ORDERED: traMADol HCL 50 MG TABLET ONE (16:41)
[2022-10-06] MEDS: ACETAMINOPHEN 325 MG TABLET (FP) PO PRN (20:56)
[2022-10-06] MEDS: CEFEPIME 1 GM in DEXTROSE 5%-WATER 100 ML IVPB SCH (22:22)
[2022-10-06] MEDS ORDERED: METOPROLOL TARTRATE 50 MG TABLET (FP) ONE (22:23)
[2022-10-06] MEDS: METOPROLOL TARTRATE 50 MG TABLET (FP) PO SCH (22:26)
[2022-10-07] MEDS ORDERED: traMADol HCL 50 MG TABLET PO PRN (08:25)
[2022-10-07 08:47] LABS: BASO % 0.3 % (0-2.0); EOS % 1.8 % (0-4.5); HEMATOCRIT 38.4 % (35.4-49); HEMOGLOBIN 12.3 GM/dL (11.7-16.9); MCH 28.3 pg (25.7-33.7); MCHC 32.1 g/dl (32.0-35.9); MEAN CELL VOLUME 88.3 fl (80-96); MEAN PLT VOLUME 7.5 fl (7.5-11.1); MONO % 14.5 % (3.8-10.2); NEUT % 77.4 % (42.8-82.8); PLATELET COUNT 183 10^3/uL (134-434); RBC 4.35 M/mm3 (4.00-5.60); RDW 14.4 % (11.9-15.9); WHITE BLOOD COUNT 10.5 K/mm3 (4.0-10.0)
[2022-10-07 09:05] LABS: CALCIUM 8.6 mg/dL (8.5-10.1)
[2022-10-07 09:06] LABS: BLOOD UREA NITROGEN 19.4 mg/dL (7-18)
[2022-10-07 09:09] LABS: BILIRUBIN,TOTAL 0.8 mg/dL (0.2-1); CREATININE 1.7 mg/dL (0.55-1.3); PHOSPHOROUS 2.1 mg/dL (2.5-4.9); TOT PROT 5.8 g/dl (6.4-8.2); URIC ACID 11.4 mg/dL (2.6-7.2)
[2022-10-07] MEDS ORDERED: ASPIRIN COATED 81 MG TABLET.EC ONE (09:17)
[2022-10-07] MEDS ORDERED: NIFEdipine E.R 60 MG TABLET PO ONE (09:17)
[2022-10-07] MEDS ORDERED: METOPROLOL TARTRATE 50 MG TABLET (FP) ONE ×2 (09:17→21:18)
[2022-10-07] MEDS ORDERED: CEFEPIME 1 GM/100 ML BAG IVPB ONE ×2 (09:18→17:39)
[2022-10-07] MEDS ORDERED: ACETAMINOPHEN 325 MG TABLET (FP) ONE (09:23)
[2022-10-07] MEDS: METOPROLOL TARTRATE 50 MG TABLET (FP) PO SCH ×2 (09:27→21:25)
[2022-10-07] MEDS: predniSONE 5 MG TABLET (UD) PO SCH (09:27)
[2022-10-07] MEDS: ASPIRIN COATED 81 MG TABLET.EC PO SCH (09:27)
[2022-10-07] MEDS: CEFEPIME 1 GM in DEXTROSE 5%-WATER 100 ML IVPB SCH ×2 (09:27→17:46)
[2022-10-07] MEDS: TACROLIMUS ANHYDROUS 1 MG CAPSULE PO SCH (09:28)
[2022-10-07] MEDS: ACETAMINOPHEN 325 MG TABLET (FP) PO PRN (09:28)
[2022-10-07] MEDS: NIFEdipine E.R 60 MG TABLET PO SCH (09:28)
[2022-10-07 09:38] LABS: ALBUMIN 2.8 g/dl (3.4-5.0)
[2022-10-07] MEDS ORDERED: CEFEPIME 1 GM in DEXTROSE 5%-WATER - 100 ML IVPB SCH (10:00)
[2022-10-07] MEDS ORDERED: VANCOMYCIN/WATER FOR INJ (PEG) 1,000 MG/200 ML BAG IVPB ONE ×2 (10:38→21:18)
[2022-10-07] MEDS: VANCOMYCIN/WATER FOR INJ (PEG) 1,000 MG/200 ML BAG IVPB SCH ×2 (10:42→21:26)
[2022-10-07 15:41] LABS: EPI CELLS 3 /uL (0-25.1); HYALINE CASTS 0 /uL (0-3.1); PH,URINE 7.5 (5.0-8.0); URINE APPEARANCE CLEAR; URINE BACTERIA 1 /uL (0-1359); URINE BILIRUBIN NEGATIVE (NEGATIVE); URINE COLOR YELLOW; URINE GLUCOSE (UA) NEGATIVE (NEGATIVE); URINE KETONE NEGATIVE (NEGATIVE); URINE LEUK ESTERASE NEGATIVE (NEGATIVE); URINE NITRITE NEGATIVE (NEGATIVE); URINE PROTEIN 1+ (NEGATIVE); URINE RBC 20 /uL (0-23.9); URINE WBC 3 /uL (0-25.8)
[2022-10-07] MEDS ORDERED: COLCHICINE 0.6 MG CAP PO ONE ×2 (18:07→18:15)
[2022-10-07] MEDS ORDERED: COLCHICINE 0.6 MG TAB ONE (18:14)
[2022-10-07] MEDS ORDERED: COLCHICINE 0.6 MG TAB PO ONE ×2 (18:15→18:30)
[2022-10-08] MEDS ORDERED: CEFEPIME 2 GM/100 ML BAG IVPB ONE (01:42)
[2022-10-08] MEDS: CEFEPIME 1 GM in DEXTROSE 5%-WATER 100 ML IVPB SCH ×2 (01:55→09:19)
[2022-10-08 08:06] LABS: BASO % 0.3 % (0-2.0); EOS % 3.1 % (0-4.5); HEMATOCRIT 38.7 % (35.4-49); HEMOGLOBIN 12.6 GM/dL (11.7-16.9); MCH 28.6 pg (25.7-33.7); MCHC 32.5 g/dl (32.0-35.9); MEAN PLT VOLUME 7.7 fl (7.5-11.1); MONO % 14.7 % (3.8-10.2); NEUT % 75.9 % (42.8-82.8); PLATELET COUNT 200 10^3/uL (134-434); RDW 13.6 % (11.9-15.9); WHITE BLOOD COUNT 10.3 K/mm3 (4.0-10.0)
[2022-10-08 08:19] LABS: ALBUMIN 2.7 g/dl (3.4-5.0); BLOOD UREA NITROGEN 21.6 mg/dL (7-18)
[2022-10-08 08:22] LABS: CREATININE 1.8 mg/dL (0.55-1.3)
[2022-10-08 08:24] LABS: BILIRUBIN,TOTAL 0.7 mg/dL (0.2-1)
[2022-10-08] MEDS ORDERED: ASPIRIN 81 MG CHEWABLE TABLETS ONE (09:08)
[2022-10-08] MEDS ORDERED: NIFEdipine E.R 60 MG TABLET PO ONE (09:08)
[2022-10-08] MEDS ORDERED: CEFEPIME 1 GM/100 ML BAG IVPB ONE ×2 (09:08→18:32)
[2022-10-08] MEDS ORDERED: VANCOMYCIN/WATER FOR INJ (PEG) 1,000 MG/200 ML BAG IVPB ONE (09:08)
[2022-10-08] MEDS ORDERED: METOPROLOL TARTRATE 50 MG TABLET (FP) ONE (09:08)
[2022-10-08] MEDS: METOPROLOL TARTRATE 50 MG TABLET (FP) PO SCH ×2 (09:19→22:31)
[2022-10-08] MEDS: predniSONE 5 MG TABLET (UD) PO SCH (09:19)
[2022-10-08] MEDS: ASPIRIN COATED 81 MG TABLET.EC PO SCH (09:19)
[2022-10-08] MEDS: VANCOMYCIN/WATER FOR INJ (PEG) 1,000 MG/200 ML BAG IVPB SCH ×2 (09:20→23:14)
[2022-10-08] MEDS: NIFEdipine E.R 60 MG TABLET PO SCH (09:20)
[2022-10-08] MEDS: TACROLIMUS ANHYDROUS 1 MG CAPSULE PO SCH (09:20)
[2022-10-08 09:30] LABS: ERYTHROCYTE SEDIMENTATION RATE 86 mm/hr (0-10)
[2022-10-08] MEDS: HEPARIN NA (PORCINE) 5,000 UNITS/ML 1ML VIAL SQ SCH ×2 (16:37→22:32)
[2022-10-09] MEDS: CEFEPIME 1 GM in DEXTROSE 5%-WATER 100 ML IVPB SCH ×4 (02:05→18:04)
[2022-10-09] MEDS: HEPARIN NA (PORCINE) 5,000 UNITS/ML 1ML VIAL SQ SCH ×3 (05:58→23:13)
[2022-10-09 09:31] LABS: BASO % 0.5 % (0-2.0); EOS % 4.6 % (0-4.5); HEMATOCRIT 37.9 % (35.4-49); HEMOGLOBIN 12.1 GM/dL (11.7-16.9); LYMPH % 5.8 % (8-40); MCH 28.2 pg (25.7-33.7); MEAN CELL VOLUME 88.3 fl (80-96); MEAN PLT VOLUME 7.3 fl (7.5-11.1); MONO % 13.7 % (3.8-10.2); NEUT % 75.4 % (42.8-82.8); PLATELET COUNT 204 10^3/uL (134-434); RBC 4.29 M/mm3 (4.00-5.60); RDW 14.2 % (11.9-15.9); WHITE BLOOD COUNT 8.8 K/mm3 (4.0-10.0)
[2022-10-09 09:53] LABS: ALBUMIN 2.6 g/dl (3.4-5.0); BLOOD UREA NITROGEN 22.5 mg/dL (7-18)
[2022-10-09 09:56] LABS: CREATININE 1.8 mg/dL (0.55-1.3)
[2022-10-09 09:57] LABS: BILIRUBIN,TOTAL 0.5 mg/dL (0.2-1); TOT PROT 5.8 g/dl (6.4-8.2)
[2022-10-09] MEDS: TACROLIMUS ANHYDROUS 1 MG CAPSULE PO SCH (10:37)
[2022-10-09] MEDS: NIFEdipine E.R 60 MG TABLET PO SCH (10:38)
[2022-10-09] MEDS: METOPROLOL TARTRATE 50 MG TABLET (FP) PO SCH ×2 (10:38→23:13)
[2022-10-09] MEDS: VANCOMYCIN/WATER FOR INJ (PEG) 1,000 MG/200 ML BAG IVPB SCH ×2 (10:38→23:13)
[2022-10-09] MEDS: ASPIRIN COATED 81 MG TABLET.EC PO SCH (10:38)
[2022-10-09] MEDS: MUPIROCIN 2% TOPICAL OINTMENT 22 GM TUBE TP SCH (10:59)
[2022-10-09] MEDS: predniSONE 10 MG TABLET (UD) PO SCH (11:04)
[2022-10-09 11:54] LABS: ERYTHROCYTE SEDIMENTATION RATE 86 mm/hr (0-10)
[2022-10-09] MEDS ORDERED: methylPREDNISolone ACET (DEPO) 40 MG/1 ML VIAL IM ONE (16:00)
[2022-10-09] MEDS ORDERED: LIDOCAINE HCL 1%, 10 MG/ML (20ML VIAL) SQ ONE (16:01)
[2022-10-09] MEDS ORDERED: INSULIN (NOVOLOG) ASPART 100 UNITS/ML 10ML VIAL ONE (22:08)
[2022-10-10] MEDS: CEFEPIME 1 GM in DEXTROSE 5%-WATER 100 ML IVPB SCH ×2 (02:41→10:21)
[2022-10-10] MEDS: HEPARIN NA (PORCINE) 5,000 UNITS/ML 1ML VIAL SQ SCH ×2 (06:52→14:22)
[2022-10-10 09:08] LABS: HEMATOCRIT 36.8 % (35.4-49); HEMOGLOBIN 12.1 GM/dL (11.7-16.9); MCH 28.7 pg (25.7-33.7); MCHC 32.7 g/dl (32.0-35.9); MEAN CELL VOLUME 87.6 fl (80-96); MEAN PLT VOLUME 7.5 fl (7.5-11.1); PLATELET COUNT 228 10^3/uL (134-434); RDW 13.8 % (11.9-15.9); WHITE BLOOD COUNT 10.8 K/mm3 (4.0-10.0)
[2022-10-10 10:14] LABS: ERYTHROCYTE SEDIMENTATION RATE 92 mm/hr (0-10)
[2022-10-10] MEDS ORDERED: CEFEPIME HCL 1 GM VIAL (RESTRICTED TO ID) ONE (10:14)
[2022-10-10] MEDS: NIFEdipine E.R 60 MG TABLET PO SCH (10:21)
[2022-10-10] MEDS: ASPIRIN COATED 81 MG TABLET.EC PO SCH (10:22)
[2022-10-10] MEDS: predniSONE 10 MG TABLET (UD) PO SCH (10:22)
[2022-10-10] MEDS: TACROLIMUS ANHYDROUS 1 MG CAPSULE PO SCH (10:22)
[2022-10-10] MEDS: METOPROLOL TARTRATE 50 MG TABLET (FP) PO SCH (10:22)
[2022-10-10] MEDS: MUPIROCIN 2% TOPICAL OINTMENT 22 GM TUBE TP SCH (10:34)
[2022-10-10] MEDS: VANCOMYCIN/WATER FOR INJ (PEG) 1,000 MG/200 ML BAG IVPB SCH (10:58)
[2022-10-10 12:11] VITALS: BMI 33.1
[2022-10-10 12:14] LABS: BLOOD UREA NITROGEN 32.4 mg/dL (7-18)
[2022-10-10 12:22] LABS: CALCIUM 9.5 mg/dL (8.5-10.1)
[2022-10-10 15:45] VITALS: BP 157/88; PULSE 71; RESP 20; TEMP 98.1
[2022-10-10 18:13] LABS: BF WBC & OTHER NUCLEATED CELLS 30647 /mm3
[2022-10-10] MEDS ORDERED: TACROLIMUS ANHYDROUS 1 MG CAPSULE PO SCH (22:00)
== END 2022-10-10 17:41 | disposition home or self-care (01) | DRG 554 ==
LOC: JER 07:43 → JERBED 12:03 → OBSVTOIN 10-08 17:37 → J8W 10-08 20:21
PROVIDERS: ADMIT Internal Medicine; ATTEND Internal Medicine
PROC: 0R9N3ZX Drainage of Right Wrist Joint, Percutaneous Approach, Diagnostic (ICD-10-PCS; principal; 2022-10-09)
PROC: 3E0U33Z Introduction of Anti-inflammatory into Joints, Percutaneous Approach (ICD-10-PCS; 2022-10-09)
PROC: 3E0U3BZ Introduction of Anesthetic Agent into Joints, Percutaneous Approach (ICD-10-PCS; 2022-10-09)
DX: M10.9 Gout, unspecified (principal); L03.113 Cellulitis of right upper limb; Z94.0 Kidney transplant status; I69.354 Hemiplegia and hemiparesis following cerebral infarction affecting left non-dominant side; I12.0 Hypertensive chronic kidney disease with stage 5 chronic kidney disease or end stage renal disease; L97.529 Non-pressure chronic ulcer of other part of left foot with unspecified severity; I89.0 Lymphedema, not elsewhere classified; N18.9 Chronic kidney disease, unspecified; R80.9 Proteinuria, unspecified
CPT/HCPCS: 36415; 73110-TC-RT-FY; 73130-TC-RT-FY; 73218-TC-RT; 76776-TC; 76856-TC; 80048; 80053; 80197; 81003; 82436; 82570; 82962; 83735; 84100; 84133; 84300; 84443; 84550; 85025; 85027; 85610; 85651; 85730; 86140; 87040; 89060; 93005; 93010; 93971; 97116-GP; 97161-GP; 99285-25; C9803-CS; G0378; G0480; J1644; U0003; U0005

== ENCOUNTER 2023-10-30 09:20 | Emergency (ER) | payer OTHER ==
[2023-10-30] MEDS ORDERED: ACETAMINOPHEN 1000 MG/100 ML BAG IVPB ONE (12:09)
[2023-10-30 12:38] LABS: BASO % 0.2 % (0-2.0); EOS % 0.6 % (0-4.5); HEMATOCRIT 40.2 % (35.4-49); HEMOGLOBIN 13.1 GM/dL (11.7-16.9); LYMPH % 3.5 % (8-40); MCH 28.8 pg (25.7-33.7); MCHC 32.5 g/dl (32.0-35.9); MEAN CELL VOLUME 88.5 fl (80-96); MEAN PLT VOLUME 7.3 fl (7.5-11.1); MONO % 9.2 % (3.8-10.2); NEUT % 86.5 % (42.8-82.8); PLATELET COUNT 189 10^3/uL (134-434); RBC 4.55 M/mm3 (4.00-5.60); RDW 13.7 % (11.9-15.9); WHITE BLOOD COUNT 13.6 K/mm3 (4.0-10.0)
[2023-10-30] MEDS ORDERED: ACETAMINOPHEN 325 MG TABLET (FP) PO ONE (12:46)
[2023-10-30] MEDS ORDERED: ACETAMINOPHEN 325 MG TABLET (FP) ONE (12:53)
[2023-10-30 13:08] LABS: POTASSIUM 4.3 mmol/L (3.5-5.1)
[2023-10-30 13:11] LABS: ALBUMIN 3.2 g/dl (3.4-5.0); BLOOD UREA NITROGEN 25.9 mg/dL (7-18); CALCIUM 8.6 mg/dL (8.5-10.1)
[2023-10-30 13:14] LABS: CREATININE 1.8 mg/dL (0.55-1.3)
[2023-10-30 13:15] LABS: BILIRUBIN,TOTAL 0.7 mg/dL (0.2-1); ERYTHROCYTE SEDIMENTATION RATE 56 mm/hr (0-20)
[2023-10-30 13:16] LABS: TOT PROT 6.6 g/dl (6.4-8.2)
[2023-10-30] MEDS ORDERED: predniSONE 20 MG TABLET (UD) PO ONE (13:55)
[2023-10-30] MEDS ORDERED: predniSONE 20 MG TABLET (UD) ONE (14:05)
[2023-10-30 14:19] VITALS: TEMP 98; BMI 33.5
[2023-10-30 14:43] VITALS: BP 109/68; PULSE 72; RESP 19
== END 2023-10-30 14:36 | disposition home or self-care (01) ==
LOC: JER 09:20
DX: R60.9 Edema, unspecified (principal); M10.9 Gout, unspecified
CPT/HCPCS: 36415; 73070-TC-RT-FY; 73090-TC-RT-FY; 73110-TC-RT-FY; 73130-TC-RT-FY; 80053; 85025; 85651; 86140; 87040; 99284-25

== ENCOUNTER 2024-08-05 09:48 | Emergency (ER) | payer OTHER ==
[2024-08-05 09:57] VITALS: BP 131/76; PULSE 71; RESP 18; TEMP 97.6; BMI 31.1
[2024-08-05] MEDS ORDERED: ACETAMINOPHEN 500 MG TABLET (FP) ONE (11:57)
[2024-08-05] MEDS: ACETAMINOPHEN 500 MG TABLET (FP) PO ONE (12:01)
== END 2024-08-05 12:36 | disposition home or self-care (01) ==
LOC: JER 09:48
DX: M79.642 Pain in left hand (principal); M79.645 Pain in left finger(s); M79.89 Other specified soft tissue disorders
CPT/HCPCS: 73130-TC-LT-FY; 99283-25

== ENCOUNTER 2024-10-17 07:30 | Emergency (ER) | payer OTHER ==
[2024-10-17 08:59] VITALS: BMI 34.7
[2024-10-17] MEDS ORDERED: ACETAMINOPHEN 325 MG TABLET (FP) ONE ×2 (09:00→17:36)
[2024-10-17] MEDS: ACETAMINOPHEN 1000 MG/100 ML BAG IVPB ONE (09:04)
[2024-10-17] MEDS: ACETAMINOPHEN 325 MG TABLET (FP) PO ONE ×2 (09:04→17:50)
[2024-10-17] MEDS: ACETAMINOPHEN 500 MG TABLET (FP) PO ONE (09:05)
[2024-10-17] MEDS ORDERED: predniSONE 20 MG TABLET (UD) ONE (10:26)
[2024-10-17] MEDS: predniSONE 20 MG TABLET (UD) PO ONE (10:32)
[2024-10-18 01:58] VITALS: BP 113/58; PULSE 88; RESP 20; TEMP 98
== END 2024-10-17 17:50 | disposition home or self-care (01) ==
LOC: JER 07:30
DX: M10.9 Gout, unspecified (principal)
CPT/HCPCS: 99283-25

== ENCOUNTER 2024-12-16 09:22 | Emergency (ER) | payer OTHER ==
[2024-12-16 09:27] VITALS: BP 137/70; PULSE 76; RESP 20; TEMP 97.9; BMI 31.1
[2024-12-16] MEDS ORDERED: ACETAMINOPHEN 500 MG TABLET (FP) ONE (12:00)
[2024-12-16] MEDS ORDERED: predniSONE 20 MG TABLET (UD) ONE (12:00)
[2024-12-16] MEDS: ACETAMINOPHEN 500 MG TABLET (FP) PO ONE (12:26)
[2024-12-16] MEDS: predniSONE 20 MG TABLET (UD) PO ONE (12:26)
== END 2024-12-16 13:05 | disposition home or self-care (01) ==
LOC: JER 09:22
DX: M79.89 Other specified soft tissue disorders (principal); R60.0 Localized edema
CPT/HCPCS: 93971; 99284-25

== ENCOUNTER 2025-02-24 20:56 | Emergency (ER) | payer OTHER ==
[2025-02-24 21:10] VITALS: BMI 34.4
[2025-02-24] MEDS ORDERED: LIDOCAINE 4% PATCH TP ONE (21:46)
[2025-02-24] MEDS ORDERED: ACETAMINOPHEN 500 MG TABLET (FP) ONE (21:48)
[2025-02-24] MEDS: ACETAMINOPHEN 500 MG TABLET (FP) PO ONE (21:57)
[2025-02-24] MEDS: LIDOCAINE 4% PATCH TP ONE (21:58)
[2025-02-24] MEDS ORDERED: METHOCARBAMOL 500 MG TABLET ONE (22:32)
[2025-02-24] MEDS: METHOCARBAMOL 500 MG TABLET PO ONE (22:33)
[2025-02-25] MEDS: LIDOCAINE PATCH REMOVAL MC SCH (00:41)
[2025-02-25] MEDS ORDERED: LIDOCAINE 4% PATCH TP ONE (00:43)
[2025-02-25] MEDS: LIDOCAINE 4% PATCH TP ONE (01:14)
[2025-02-25 01:57] VITALS: BP 140/67; PULSE 78; RESP 18; TEMP 98.2
[2025-02-25] MEDS ORDERED: LIDOCAINE PATCH REMOVAL MC SCH (22:00)
== END 2025-02-25 01:57 | disposition home or self-care (01) ==
LOC: JER 20:56
DX: M25.511 Pain in right shoulder (principal); M25.521 Pain in right elbow; M25.531 Pain in right wrist; M79.89 Other specified soft tissue disorders
CPT/HCPCS: 73030-TC-RT-FY; 93971; 99284-25

== ENCOUNTER 2025-03-13 00:34 | Emergency (ER) | payer OTHER ==
[2025-03-13 00:57] VITALS: BMI 34.7
[2025-03-13] MEDS ORDERED: KETOROLAC TROMETHAMINE 15 MG/ML VIAL ONE (01:30)
[2025-03-13] MEDS ORDERED: LIDOCAINE 4% PATCH TP ONE (01:30)
[2025-03-13] MEDS: KETOROLAC TROMETHAMINE 15 MG/ML VIAL IVPUSH ONE (01:37)
[2025-03-13] MEDS: KETOROLAC TROMETHAMINE 15 MG/ML VIAL IM ONE (01:37)
[2025-03-13] MEDS: LIDOCAINE 4% PATCH TP ONE (01:37)
[2025-03-13 10:19] VITALS: BP 118/74; PULSE 65; RESP 17; TEMP 97.1
[2025-03-13] MEDS ORDERED: LIDOCAINE PATCH REMOVAL MC SCH (22:00)
== END 2025-03-13 10:19 | disposition home or self-care (01) ==
LOC: JER 00:34
PROC: 3E0233Z Introduction of Anti-inflammatory into Muscle, Percutaneous Approach (ICD-10-PCS; principal; 2025-03-13)
DX: M25.511 Pain in right shoulder (principal)
CPT/HCPCS: 96372; 99284-25